=== PATIENT | female | born 2000 | race Caucasian/White ===

== ENCOUNTER 2024-12-02 15:13 | Outpatient (RCR) | payer OTHER, BC, SELFPAY | END 2025-02-28 23:59 | disposition home or self-care (01) | LOC: ANHLAB 15:13 | PROVIDERS: Visit Provider Obstetrics & Gynecology | DX: O20.0 Threatened abortion (principal); Z3A.00 Weeks of gestation of pregnancy not specified | CPT/HCPCS: 36415; 84702 ==

== ENCOUNTER 2025-05-15 14:19 | Observation (INO) | payer OTHER, BC, SELFPAY ==
--- OUTSIDE RECORDS SUMMARY | 2025-05-15 14:38 | XMS_ITS | Encounter Summary ---
Author Organization [facility] Address [address] [place] [address] Care Team Providers Care Plate Cleaner Name Role Phone Unavailable Primary Care Provider Unavailabl e Encounter Details Date Type Department Care Team (Latest Contact Info) Description 04/17/2025 Results Follow-Up [facility] Maternal and Medicine - Medical [place] [address] [place] [address] Tess Vazquez MD [address] [facility] [place] [address] COMPREHENSIVE METABOLIC PANEL, HEMOGLOBIN A1C, BILE ACIDS FRACTIONATED AND TOTAL Social History Tobacco Use Types Packs/Day Years Used Date Smoking Tobacco: Never Estimated Date of Delivery Comme nts Yes 07/13/2025 Date entered bianca or to episode creation Sex and Gender Information Value Date Recorded Sex Assigned at Not on file 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 Gender Identity Not on file Sexual Orientation Not on file documented as of this encounter Plan of Treatment Upcoming Encounters Date Type Department Care Team (Late st Contact Info) Description 05/25/2025 9:00 AM CDT Appointment [facility] Maternal and Ground Floor [address] [place] [address] Marlee Clemens MD [address] [place] [address] 06/01/2025 9:00 AM CDT Appointment [facility] Ground Floor [address] [place] [phone] Marlee Clemens MD [address] [facility] [place] [address] 06/05/2025 8:00 AM CDT Office Visit [facility] [address] [address] Michael Hartman MD [address] [facility] [address] [place] [address] 06/05/2025 9:00 AM CDT Appointment [facility] Ground Floor [address] [place] [phone] Marlee Clemens MD [address] [facility] [place] [address] 06/05/2025 9:45 AM CDT Appointment [facility] Ground Floor [address] [place] [phone] Latonia Collins MD [address] [facility] [address] [place] [address] 06/08/2025 8:45 AM CDT Appointment [facility] Ground Floor [address] [place] [phone] Marlee Clemens MD [address] [facility] [place] [address] 06/08/2025 11:00 AM CDT visit [facility] Maternal and Medicine - [facility] [address] [facility] [address] [place] [address] 06/15/2025 9:00 AM CDT Appointment [facility] M[facility] and Ground Floor [address] [place] [phone] Marlee Clemens MD [address] [facility] [facility] [place] [address] 06/22/2025 9:00 AM CDT Appointment [facility] M[facility] Ground Floor [address] [place] [address] Latonia Collins MD [address] [facility] [address] [place] [address] 06/29/2025 9:00 AM CDT Appointment [facility] and Ground Floor [address] [place] [address] Latonia Collins MD [address] [facility] [address] [place] [address] 07/06/2025 9:00 AM CDT Appointment [facility] M[facility] and Ground Floor [address] [place] [address] Latonia Collins MD [address] [facility] [address] [place] [address] documented as of this encounter Visit Diagnoses Not on filedocumented in this encounter
--- OUTSIDE RECORDS SUMMARY | 2025-05-15 14:39 | XMS_ITS | Referral Summary ---
Author Organization [address] Address [address] [facility] [address] [place] [address] Care Team Providers Care Zipper Slide Attacher Name Role Phone Shila Patel SURVEY CREW CHIEF Primary Care Provider [phone] Encounters Date Type Department Care Team Description 03/29/2025 4:00 PM CDT Office Visit [facility] Primary Care at [address] [address] Shila Patel NP Encounter to establish care with new provider (Primary Dx); Type 1 diabetes mellitus without complication (HCC) from Last 3 Months Allergies No known active allergies Medications Dexcom G7 Sensor device 4 Active insulin glargine 100 unit/mL (3 mL) pen for injection Inject 4 Units under the skin daily 3 mL 6 5 Active insulin aspart (NovoLOG) 100 unit/mL vial for injection Total daily dose of 20 units 3 mL 6 5 Active insulin lispro (HumaLOG, ADMELOG) 100 unit/mL pen for injectionIndicat ions:type 1 diabetes mellitus Total daily dose of 20 units 3 mL 6 5 Active insulin lispro-aabc (LYUMJEV) 100 unit/mL vial for injection Inject 20 Units under the skin daily 10 mL 11 5 Active insulin aspart niacinamide (FIASP) 100 unit/mL (3 mL) pen for injection Inject Total daily dose of 20 units 10 mL 11 5 Active fluticasone furoate-vilanter oL 50-25 mcg/dose blister with device Inhale daily Activ e cetirizine (ZyrTEC) 10 mg tablet Take 1 tablet (10 mg total) by mouth daily Active aspirin 81 mg enteric coated tablet Take 1 tablet (81 mg total) by mouth daily Active vit 82-zmxl-vnwys-dh a 27mg iron- 800 mcg-250 mg capsule Take by mouth Active magnesium gluconate 200 mg tabletIndication s:hypomagnesemia 1 tablet (200 mg total) Active fluticasone propionate (FLONASE) 50 mcg/actuation nasal spray Administer 1 spray into each nostril daily Active ipratropium-albu teroL (Combivent Respimat) 20-100 mcg/actuation inhaler Inhale 1 puff every 4 (four) hours as needed for shortness of breath 1 each Active albuterol HFA (PROVENTIL HFA,VENTOLIN HFA,PROAIR HFA) 90 mcg/actuation inhaler Inhale 2 puffs every 6 (six) hours as needed for wheezing 1 each Active Active Problems Problem Noted Date Diagnosed Date Encounter to establish care with new provider Type 1 diabetes mellitus without complication Pre-existing type 1 diabetes mellitus in in second trimester 01/18/2025 Asthma during in second trimester 03/2025 Social History Tobacco Use Types Packs/Day Years Used Date Smoking Tobacco: Never Smokeless Tobacco: Never Tobacco Cessation:Counseling Given: Not Answered AUDIT-C Answer Date Recorded Q1: How often do you have a drink containing alcohol? Never 03/29/2025 Q2: How many drinks containi ng alcohol do you have on a typical day when you are drinking? Patient does not drink Q3: How often do you have si x or more drinks on one occasion? 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 Gender Identity Not on file Sexual Orientation Not on file Last Filed Vital Signs Vital Sign Reading Time Taken Comments Blood Pressure 120/64 03/29/2025 3:57 PM CDT Pulse 93 03/29/2025 3:57 PM CDT Temperature 36.9 C (98.4 F) 03/29/2025 3:57 PM CDT Respiratory Rate 16 03/29/2025 3:57 PM CDT Oxygen Saturation 94% 03/29/2025 3:57 PM CDT Inhaled Oxygen Concentration - - Weight 67.4 kg (148 lb 11.2 oz) 03/29/2025 3:57 PM CDT Height 157.5 cm (5' 2) 03/29/2025 3:57 PM CDT Body Mass Index 27.2 03/29/2025 3:57 PM CDT Plan of Treatment Not on file Procedures Procedure Name Priority Date/Time Associated Diagnosis Comments RETINAVUE SCANNER - OU - BOTH EYES Routine 11/17/2024 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), managed as type 1 (HCC) from Last 3 Months or Most Recently Relevant to Health Maintenance Results * RetinaVue Scanner - OU - Both Eyes (11/17/2024) Anatomical Region Laterality Modality Head Fundus Photograp hy 11/17/2024 Jaron Gonzalez DO OPHTH PHOTOGRAPHY Final Res ult from Last 3 Months or Most Recently Relevant to Health Maintenance Insurance [facility] H[facility]/PPO Address: [facility] [address] [place] [address] [facility] Care Teams Zipper Slide Attacher Relationship Specialty Start Date End Date Shila Patel NP [address] [address] PCP - General Family Medicine 03/29/25
--- OUTSIDE RECORDS SUMMARY | 2025-05-15 14:39 | XMS_ITS | Data Portability ---
Author Organization [facility], [address] [place] ([place]) Address [address] [address] Care Team Providers Care Ream Cutter Name Role Phone RAGHAV BUSTAMANTE Primary Care Provider BETY CABA Tax Advisor Assessment No assessment recorded. Plan of Treatment Reminders Order Date Submit Date Provider Last Modified By Organization Details Last Modified Time Details Appointments None recorded. Lab Pap test, slide(s), cervical - 2023 024 JUL[facility], [facility] [address], [address], 10:13:22 Referral None recorded. Procedures None recorded. Surgeries None recorded. Imaging None recorded. Medication Orders None recorded. Patient TargetsNo targets recorded. Patient Instructions Encounter Date Encounter Id Patient Instructions Last Modified By Organization Details Last Modified Time 04/22/2024 [id number] Await pap result s Discussed how kyleena has only been approved for 5 years, discussed increased risk of , vu. annual in a year [email or web address] Not available 04/22/2024 11:02:48 Reason for Referral None Reported. Results Created Date Observation Date Name Description Value Unit Range Abnormal Flag Note LastModifiedBy Organization Detail LastModifiedTime Result Notes None recorded. Problems Name Problem SNOMED Code Status Onset Date Resolution Date Notes Provider Name and Address Organization Details Recorded Time Uses IUD (intraut erine device) contrace ption 613784095 Completed 202310/12/2024 Kyleena inserted 03/11/[address] Cabrera, Lot [id number] [facility] 4 10:56:23 Type 1 diabetes mellitus 76299117 Active 2023 Taylerjacinto Warren [facility] 4 08:38:12 Migraine 46998470 Active 2023 Tayler Warren [facility] 4 08:38:19 Asthma 846609960 Active 2023 Tayler Warren [facility] 4 08:38:25 Problem Notes None recorded. Procedures Surgical History Date Name Laterality Status Provider Name and Address Organization Details Recorded Time 4 IUD Removal completed China Garces, ANODIC OPERATOR [address], [address], [facility] 10/12/2024 11:14:20 4 Date of Last Pap Smear completed [facility] 04/24/2025 14:14:21 extraction of wisdom tooth completed [facility] 04/24/2025 14:15:15 operative procedure on knee completed [facility] 04/24/2025 14:15:24 removal of ovarian cyst completed [facility] 04/24/2025 14:15:39 Imaging Results None recorded. Procedure Notes None recorded. Medical Equipment None Reported. Allergies Allergen ID Allergen Name Allergen Category Reaction Reaction Severity Criticality Documentation Date Start Date Code Code System Note Provider Name and Address Organization Details Recorded Time 6476547 ethinyl estradiol / levonorge strel medicatio n chest pain cough eye redness eye swelling headache hives itching rash wheezing Not available Not available Not available Not available Not available Not available Not available Not available Not available Not available 04/15/2024 21445 8 RxNorm Not Available Health Note 4 10:01:01 Medications Name Sig Start Date Stop Date Status Note LastModified by Organization Details LastModified Time cyclobenzapr ine 10 mg tablet TAKE 1 TABLET ORAL ROUTE EVERY 8 HOURS NEEDED CUT IN HALF IF TOO SEDATING active Not Available Not Available No t Available clindamycin 1 % topical gel APPLY 1 A SMALL AMOUNT TO SKIN TWICE A DAY FACE active Not Available Not Available N ot Available ibuprofen 600 mg tablet TAKE 1 TABLET ORAL ROUTE EVERY 6 HOURS NEEDED TAKE WITH FOOD active Not Available Not Available No t Available albuterol sulfate HFA 90 mcg/actuatio n aerosol inhaler TAKE 2 PUFFS BY INHALATION EVERY 4 HOURS NEEDED FOR WHEEZING OR COUGH. USE WITH SPACER active Not Available Not Available Not Available Novolog PenFill U-100 Insulin aspart 100 unit/mL subcutaneous cartridg USE DIRECTED. GIVE UP TO 60 UNITS PER DAY. active Not Available Not Available No t Available olopatadine 0.6 % nasal spray 1 BY NASAL ROUTE 2 TIMES DAILY. active Not Available Not Available No t Available Kyleena 17.5 mcg/24 hr (up to 5 years) 19.5 mg intrauterine device Take 1 device every day by intrauterin e route. active Not Available Not Available No t Available Gvoke HypoPen 2-Pack 1 mg/0.2 mL subcutaneous auto-injecto r USE FOR SEVERE LOW BLOOD SUGAR. INJECT IF UNCONSCIOUS OR HAVING A SEIZURE active Not Available Not Available No t Available Dexcom G7 Sensor device CHANGE SENSOR EVERY 10 DAYS active Not Available Not Available No t Available Vitals Date Recorded Body height Body mass index (BMI) Body weight Systolic blood pressure Diastolic blood pressure Provider Name and Address Organization Details Last Updated DateTime 04/22/2024 162.56 cm 19.7 kg/m2 48665.12 g 92 mm[Hg] 62 mm[Hg] Cathie Oakley [facility] 4 09:15:45 Date Recorded Body height Body mass index (BMI) Body weight Systolic blood pressure Diastolic blood pressure Provider Name and Address Organization Details Last Updated DateTime 10/12/2024 162.56 cm 22.2 kg/m2 40427.57 g 104 mm[Hg] 58 mm[Hg] Nara Anthony [facility] 4 11:02:22 Social History Question Answer Notes LastModified by Organizat ion Details LastModified Time Tobacco Smoking Status Never [facility]/05/2024 16:38:14 Do You Have An Advance Directive? No [email or web address] Information not available 04/15/2024 What Is Your Level Of Caffeine Consumption? Occasional [email or web address] Information not available 04/15/2024 How Many Times Per Week Do You Exercise? 3-4 Times Per Week [email or web address] Information not available 04/15/2024 Do You Have A Medical Power Of Internet Project Manager? No [email or web address] Information not available 04/15/2024 What Was The Date Of Your Most Recent Tobacco Screening? 04/22/2024 [email or web address] Information not available 04/15/2024 What Is Your Relationship Status? Single [email or web address] Information not available 04/22/2024 Are You Sexually Active? No [email or web address] Information not available 04/22/2024 Sex: Unknown Functional Status Question Answer Note LastModified by Organizat ion Details LastModified Time How many times per week do you consume alcohol? Less than 1 time per week [email or web address] Information not available 04/15/2024 Do you use any illicit or recreational drugs? No [email or web address] Information not available 04/15/2024 What is your level of alcohol consumption? Occasional [email or web address] Information not available 04/15/2024 Are you currently employed? 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 Moderate [email or web address] Information not available 04/15/2024 Mental Status None recorded. Family History Relationship Description Onset Age of this Age Resolved Age Notes LastModified by Organization Details LastModified Time Brother Attention deficit hyperactivit y disorder [email or web address] Not available 04/15 10:01:00 Mother Arthritis [email or web address] Not available 04/15/2024 10:01:00 Maternal Grandfather Arthritis [email or web address] Not available 03/18 10:01:00 Maternal Grandfather Asthma [email or web address] Not available 2023 10:01:00 Maternal Grandmother Arthritis [email or web address] Not available 03/18 10:01:00 Maternal Grandmother Hypertensive disorder [email or web address] Not available 2023 10:01:00 Father Diabetes mellitus [email or web address] Not available 2023 10:01:00 Paternal Grandfather Diabetes mellitus [email or web address] Not available 2023 10:01:00 Paternal Grandfather Hypertensive disorder [email or web address] Not available 2023 10:01:00 Paternal Grandfather Hypercholest erolemia [email or web address] Not available 2023 10:01:00 Paternal Grandmother Hypertensive disorder [email or web address] Not available 2023 10:01:00 Paternal Grandmother Hypercholest erolemia [email or web address] Not available 2023 10:01:00 Medical History Condition Response Diabetes Y Anxiety Disorder Y Bleeding Disorder N Attention-deficit Hyperactivity Disorder Y High Blood Pressure N Arthritis N Hyperlipidemia N Cancer N Stroke N Thyroid Problems N Asthma Y Depression N COPD N Anemia N Seizures N Heart Disease N Fibromyalgia N Osteoporosis N Kidney Disease N Gynecological History Statement/Question Response Abnormal Pap N Flow Moderate STIs/STDs N HPV Vaccine N Date of Last Pap Smear 04/25/2024 Duration of Flow (days) 6 Age at Menarche 13 Current Control Method IUD Hormone Replacement Therapy N Obstetrics History GPAL:G 0 P 0 0 0 0 Immunizations Vaccine Type Date Status Note Provider Nam e and Address Organization Details Recorded Time COVID-19, mRNA, LNP-S, PF, 30 mcg/0.3 mL dose 1 completed Laurie Madeleine [facility] 10/05/2024 16:37:15 COVID-19, mRNA, LNP-S, PF, 30 mcg/0.3 mL dose 1 completed Laurie Madeleine [facility] 10/05/2024 16:37:15 COVID-19, mRNA, LNP-S, PF, 30 mcg/0.3 mL dose 1 completed Laurie Madeleine [facility] 10/05/2024 16:37:15 Influenza, split virus, trivalent, PF 5 completed Laurie Madeleine [facility] 10/05/2024 16:37:15 Hep B, adult 2 completed Laurie Madeliene [facility] 10/05/2024 16:37:15 Hep B, adult 1 completed Laurie Crewsue [facility] 10/05/2024 16:37:15 Hep B, adult 1 completed Laurie Crewsue null, [facility] 10/05/2024 16:37:15 Hep A, ped/adol, 2 dose 9 completed Laurie Madeleine null, [facility] 10/05/2024 16:37:15 Hep A, ped/adol, 2 dose 8 completed Laurie Madeleine null, [facility] 10/05/2024 16:37:15 Meningococcal MCV4O 8 completed Laurie Madeleine null, [facility] 10/05/2024 16:37:15 Influenza, split virus, quadrivalent, PF 9 completed Laurie Madeleine null, [facility] 10/05/2024 16:37:15 Influenza, split virus, quadrivalent, PF 6 completed Laurie Madeleine [facility], [facility] 10/05/2024 16:37:15 Past Encounters Encounter ID Performer Location Encounter Start Date Encounter Closed Date Diagnosis/Indication Diagnosis SNOMED-CT Code Diagnosis ICD10 Code Diagnosis Note [id number] ZACHARY Hammer [facility] ([place]) [address] [address] 04/22/2024 09:02:22 04/22/2024 09:41:27 Contraception care management 462653298 Z30.9 Screening for malignant neoplasm of cervix done 1613489047 Z12.4 Gynecologi c examination 98995597 Z01.419 [id number] ROCIO Hawk [facility] ([place]) [address] [address] 10/12/2024 10:48:48 10/12/2024 11:13:22 Removal of intrauterine contraceptive device 6146814661 Z30.432 Patient tolerated removal well, showed patient her IUD after removalEnc ourage patient to reach out should she have any issues or when she becomes Ot herwise, annual next year Health Concerns Section Related Observation LastModified by Organization Detai ls LastModified Time None Recorded Concern Status LastModified by Organization Details LastModified Time None Recorded Advance Directives Directive N: Payers Insurance Date Sequence Insurance Name Policy Number Policy Castillo Covered Member ID Castillo Member ID Guarantor Name 04/23/2025 1 [facility] [id number] Kera Carreon [id number] Kera Copeland 04/23/2025 2 [facility] [facility] [id number] yusra Copeland [id number] Kera Copeland Notes Date Note Type Note Provider Name and Address Organization Details Recorded Time 04/22/2024 text/html Pt getting marri ed next month.Pt would not like to get it out right now, but would be agreeable in October, will be trying to have helpPeriods usually every month, not every month. 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 Bety Caba APN [address] [place] [address], [phone], [facility] 04/22/2024 11:03:22 10/12/2024 text/html Patient presents to the office today to have her IUD removed She was overdue for removal She got over the summer and would like to try to conceiveWe reviewed anticipated bleeding after removal Encourage patient to begin taking a vitamin to prevent neural tube defects DHA and folic acid were encouraged Notified patient that return to fertility is immediate, however cycles may be unpredictable for the first month China Garces APRN [address] [place] [address], [phone], [facility] 10/12/2024 11:17:15 OBGyn Episode No OBEpisode recorded.
--- OUTSIDE RECORDS SUMMARY | 2025-05-15 14:39 | XMS_ITS | Data Portability ---
Author Organization [facility] [place] Address [address] [place] [address] Assessment Encounter Date Assessment Date Assessment LastModified by Organization Details LastModified Time 03/01/2025 03/01/2025 Patient is ___weeks . Discussed plan. Not available 03/01/2025 09:55:15 04/01/2025 04/01/2025 Patient is ___weeks . Discussed plan. [email or web address] Not available 04/01/2025 09:25:14 Plan of Treatment Reminders Order Date Submit Date Provider Last Modified By Organization Details Last Modified Time Details Appointments NST 2024 02:30P M NST SCHEDULE Not available Not available Not available OB ROUTINE 2024 03:15P Rossy YOON MD Not available Not available Not available NST 2024 03:00P M NST SCHEDULE Not available Not available Not available OB ROUTINE 2024 03:45P Rossy YOON MD Not available Not available Not available NST 2024 03:30P M NST SCHEDULE Not available Not available Not available OB ROUTINE 2024 04:00P Rossy YOON MD Not available Not available Not available NST 2024 03:30P M NST SCHEDULE Not available Not available Not available OB ROUTINE 2024 04:00P Rossy YOON MD Not available Not available Not available NST 2024 03:30P M NST SCHEDULE Not available Not available Not available OB ROUTINE 2024 04:00P Rossy YOON MD Not available Not available Not available NST 2024 04:00P M NST SCHEDULE Not available Not available Not available OB ROUTINE 2024 04:30P M DONALD YOON MD Not available Not available Not available NST 2024 03:30P M NST SCHEDULE Not available Not available Not available OB ROUTINE 2024 04:00P M DONALD YOON MD Not available Not available Not available NST 2024 03:30P M NST SCHEDULE Not available Not available Not available OB ROUTINE 2024 04:00P M DONALD YOON MD Not available Not available Not available Lab None recorded. Referral None recorded. Procedures None recorded. Surgeries None recorded. Imaging US, obstetric , follow-up 2024 025 [email or web address] [place], [facility] [address], [place], [address], 03/27/2025 18:47:03 Medication Orders famotidin e 20 mg tablet 2024 025 [facility]/Pharmacy #[id number], [address] [place], [address], 05/01/2025 15:16:08 Patient TargetsNo targets recorded. Patient InstructionsNo instructions recorded. Reason for Referral None Reported. Results Created Date Observation Date Name Description Value Unit Range Abnormal Flag Note LastModifiedBy Organization Detail LastModifiedTime 03/01/2003/01/2025 CMP/C BC/UR IC ACID WBC 8.2 10'3/ uL 3.5-10 .5 Not Available [facility] (Lab) [address], [place], [address], 03/02/2025 02:54:53 03/01/20 25 03/01/2025 CMP/C BC/UR IC ACID RBC 4.14 10'6/ uL (based on docume nted legal sex) 3.80-5 .20 Not Available [facility] (Lab) [address], [place], [address], 03/02/2025 02:54:53 03/01/20 25 03/01/2025 CMP/C BC/UR IC ACID HGB 12.8 g/dL (based on docume nted legal sex) 11.6-1 5.4 Not Available [facility] (Lab) [address], [place], [address], 03/02/2025 02:54:53 03/01/20 25 03/01/2025 CMP/C BC/UR IC ACID HCT 37.9 % (based on docume nted legal sex) 34.0-4 5.0 Not Available [facility] (Lab) [address], [place], [address], 03/02/2025 02:54:53 03/01/20 25 03/01/2025 CMP/C BC/UR IC ACID MCV 91.5 fL 80.0-9 9.0 Not Available [facility] (Lab) [address], [place], [address], 03/02/2025 02:54:53 03/01/20 25 03/01/2025 CMP/C BC/UR IC ACID MCH 30.9 pg 27.0-3 4.0 Not Available [facility] (Lab) [address], [place], [address], 03/02/2025 02:54:53 03/01/20 25 03/01/2025 CMP/C BC/UR IC ACID MCHC 33.8 g/dL 32.0-3 5.5 Not Available [facility] (Lab) [address], [place], [address], 03/02/2025 02:54:53 03/01/20 25 03/01/2025 CMP/C BC/UR IC ACID RDW 13.3 % 11.0-1 5.0 Not Available [facility] (Lab) [address], [place], [address], 03/02/2025 02:54:53 03/01/20 25 03/01/2025 CMP/C BC/UR IC ACID plt 176 10'3/ uL 150-40 0 Not Available [facility] (Lab) [address], [place], [address], 03/02/2025 02:54:53 03/01/20 25 03/01/2025 CMP/C BC/UR IC ACID MPV 11.0 fL 8.8-12 .1 Not Available [facility] (Lab) [address], [place], [address], 03/02/2025 02:54:53 03/01/20 25 03/01/2025 CMP/C BC/UR IC ACID neutrophils 70.2 % 34.0-7 3.0 Not Available [facility] (Lab) [address], [place], [address], 03/02/2025 02:54:53 03/01/20 25 03/01/2025 CMP/C BC/UR IC ACID lymphocytes 17.6 % 15.0-5 0.0 Not Available [facility] (Lab) [address], [place], [address], 03/02/2025 02:54:53 03/01/20 25 03/01/2025 CMP/C BC/UR IC ACID monocytes 9.6 % 1.0-15 .0 Not Available [facility] (Lab) [address] [place], [address], 03/02/2025 02:54:53 03/01/20 25 03/01/2025 CMP/C BC/UR IC ACID eosinophils 1.3 % 0.0-8. 0 Not Available [facility] (Lab) [address] [place], [address], 03/02/2025 02:54:53 03/01/20 25 03/01/2025 CMP/C BC/UR IC ACID basophils 0.2 % 0.0-2. 0 Not Available [facility] (Lab) [address] [place], [address], 03/02/2025 02:54:53 03/01/20 25 03/01/2025 CMP/C BC/UR IC ACID immature granulocytes 1.1 % no define d refere nce range Immat ure Granu locyt es (IG) repre sents autom ated enume ratio n of Metam yeloc ytes, Myelo cytes and Promy elocy james when IG is < 5%. Blast s are not inclu ded in IG and repor loretta separ ately if prese nt. Not Available [facility] (Lab) [address], [place], [address], 03/02/2025 02:54:53 03/01/20 25 03/01/2025 CMP/C BC/UR IC ACID absolute neutrophils 5.7 10'3/ uL 1.5-8. 0 Not Available [facility] (Lab) [address], [place], [address], 03/02/2025 02:54:53 03/01/20 25 03/01/2025 CMP/C BC/UR IC ACID absolute lymphocytes 1.4 10'3/ uL 1.0-4. 0 Not Available [facility] (Lab) [address], [place], [address], 03/02/2025 02:54:53 03/01/20 25 03/01/2025 CMP/C BC/UR IC ACID absolute monocytes 0.8 10'3/ uL 0.2-1. 0 Not Available [facility] (Lab) [address] [place], [address], 03/02/2025 02:54:53 03/01/20 25 03/01/2025 CMP/C BC/UR IC ACID absolute eosinophils 0.1 10'3/ uL 0.0-0. 6 Not Available [facility] (Lab) [address] [place], [address], 03/02/2025 02:54:53 03/01/20 25 03/01/2025 CMP/C BC/UR IC ACID absolute basophils 0.0 10'3/ uL 0.0-0. 3 Not Available [facility] (Lab) [address], [place], [address], 03/02/2025 02:54:53 03/01/2003/01/2025 CMP/C BC/UR IC ACID absolute immature granulocytes 0.1 10'3/ uL 0.00-0 .10 Refer ence range s for nonbi nary/ inter sex or unspe cifie d gende r patie nts have not been estab lishe d. Pleas e refer to the mano wing table for range s estab lishe d for cisge nder patie nts and evalu ate in the clini jacey chris xt of the indiv idual patie nt: https ://antione kelly book. nm.or g/gen derx Not Available [facility] (Lab) [address], [place], [address], 03/02/2025 02:54:53 03/01/2003/01/2025 CMP/C BC/UR IC ACID uric acid 3.6 mg/dL 2.3-6. 6 Not Available [facility] (Lab) [address], [place], [address], 03/02/2025 02:54:53 03/01/2003/01/2025 CMP/C BC/UR IC ACID sodium 137 mmol/ L 133-14 6 Not Available [facility] (Lab) [address] [place], [address], 03/02/2025 02:54:53 03/01/2003/01/2025 CMP/C BC/UR IC ACID potassium 3.5 mmol/ L 3.5-5. 1 Not Available [facility] (Lab) [address], [place], [address], 03/02/2025 02:54:53 03/01/2003/01/2025 CMP/C BC/UR IC ACID chloride 105 mmol/ L 98-107 Not Available [facility] (Lab) [address] [place], [address], 03/02/2025 02:54:53 03/01/20 25 03/01/2025 CMP/C BC/UR IC ACID carbon dioxide 27 mmol/ L 21-31 Not Available [facility] (Lab) [address], [place], [address], 03/02/2025 02:54:53 03/01/20 25 03/01/2025 CMP/C BC/UR IC ACID anion gap 5 mmol/ L 4-13 Not Available [facility] (Lab) [address], [place], [address], 03/02/2025 02:54:53 03/01/20 25 03/01/2025 CMP/C BC/UR IC ACID blood urea nitrogen 4 mg/dL 7-25 low Not Available [facility] (Lab) [address], [place], [address], 03/02/2025 02:54:53 03/01/20 25 03/01/2025 CMP/C BC/UR IC ACID creatinine 0.60 mg/dL 0.60-1 .30 Not Available [facility] (Lab) [address], [place], [address], 03/02/2025 02:54:53 03/01/20 25 03/01/2025 CMP/C BC/UR IC ACID egfrcr (CKD-epi 2020) >90 mL/mi n/1.7 3_m2 >=60 Not Available [facility] (Lab) [address], [place], [address], 03/02/2025 02:54:53 03/01/20 25 03/01/2025 CMP/C BC/UR IC ACID calcium 10.2 mg/dL 8.3-10 .5 Not Available [facility] (Lab) [address], [place], [address], 03/02/2025 02:54:53 03/01/20 25 03/01/2025 CMP/C BC/UR IC ACID glucose 56 mg/dL 70-100 low Not Available [facility] (Lab) [address], [place], [address], 03/02/2025 02:54:53 03/01/20 25 03/01/2025 CMP/C BC/UR IC ACID protein, total 6.3 g/dL 6.4-8. 3 low Not Available [facility] (Lab) [address], [place], [address], 03/02/2025 02:54:53 03/01/20 25 03/01/2025 CMP/C BC/UR IC ACID albumin 3.6 g/dL 3.5-5. 0 Not Available [facility] (Lab) [address], [place], [address], 03/02/2025 02:54:53 03/01/20 25 03/01/2025 CMP/C BC/UR IC ACID ALT 11 units /L 9-43 Not Available [facility] (Lab) [address], [place], [address], 03/02/2025 02:54:53 03/01/20 25 03/01/2025 CMP/C BC/UR IC ACID alkaline phosphatase 55 units /L 34-104 Not Available [facility] (Lab) [address], [place], [address], 03/02/2025 02:54:53 03/01/2003/01/2025 CMP/C BC/UR IC ACID AST 15 units /L 13-39 Not Available [facility] (Lab) [address], [place], [address], 03/02/2025 02:54:53 03/01/2003/01/2025 CMP/C BC/UR IC ACID bilirubin, total 0.4 mg/dL 0.2-1. 2 Not Available [facility] (Lab) [address] [place], [address], 03/02/2025 02:54:53 03/01/20 25 03/01/2025 PROTE IN/CR EATIN INE RATIO , URINE creatinine, urine 105.5 mg/dL R-No refer ence range estab lishe d for this assay Not Available [facility] (Lab) [address], [place], [address], 03/02/2025 02:54:53 03/01/20 25 03/01/2025 PROTE IN/CR EATIN INE RATIO , URINE protein, urine 7 mg/dL R-No refer ence range estab lishe d for this assay Not Available [facility] (Lab) [address], [place], [address], 03/02/2025 02:54:53 03/01/20 25 03/01/2025 PROTE IN/CR EATIN INE RATIO , URINE protein/crea tinine ratio, urine 0.07 . No Refer ence Range avail able for Rando m Urine s. A prote in to creat inine ratio of >=0.1 9 is a good predi ctor of signi fican t prote inuri a. A level of <0.14 can rule out signi fican t prote inuri a. Not Available [facility] (Lab) [address], [place], [address], 03/02/2025 02:54:53 04/17/20 25 04/17/2025 HEMOG LOBIN (HGB) HGB 11.6 g/dL (based on docume nted legal sex) 11.6-1 5.4 Not Available [facility] (Lab) [address], [place], [address], 04/18/2025 15:22:30 04/17/20 25 04/17/2025 HEMAT OCRIT (HCT) HCT 36.9 % (based on docume nted legal sex) 34.0-4 5.0 Not Available [facility] (Lab) [address], [place], [address], 04/18/2025 15:22:30 04/17/20 25 04/17/2025 HIV 1/2 ANTIG EN/AN TIBOD Y, REFLE X CONFI RMATI ON HIV antigen/anti body Nonrea ctive nonrea ctive HIV-1 antig en and HIV-1 /HIV- 2 antib odies were not detec loretta. No labor atory evide nce of HIV infec tion. Not Available [facility] (Lab) [address], [place], [address], 04/18/2025 15:22:31 04/17/20 25 04/17/2025 RPR SCREE N, REFLE X TITER /CONF IRMAT ION RPR qualitative Nonrea ctive nonrea ctive Not Available [facility] (Lab) [address], [place], [address], 04/18/2025 15:22:31 02/28/20 25 02/27/2025 US, obste tric, follo w-up No observ ation record ed. [email or web address] [facility] [place] [address] , [place], [address], 03/24/2025 15:19:33 02/28/20 25 02/27/2025 US, obste tric, follo w-up No observ ation record ed. [email or web address] [facility] [address], [place], [address], 03/08/2025 11:01:21 03/27/20 25 03/27/2025 US, obste tric, follo w-up No observ ation record ed. [email or web address] [place] [address], [place], [address], 03/27/2025 18:19:41 03/27/20 25 03/27/2025 US, obste tric, follo w-up No observ ation record ed. JULIA Oseguera [address], [place], [address], 04/04/2025 18:53:56 04/12/20 04/12/2025 imagi ng/di agnos tic resul t No observ ation record ed. [facility] [address], [place], [address], 05/04/2025 11:15:11 05/08/20 25 05/08/2025 imagi ng/di agnos tic resul t No observ ation record ed. [facility] [address] [facility], [place], [address], 05/08/2025 19:10:46 05/08/20 25 05/08/2025 imagi ng/di agnos tic resul t No observ ation record ed. [place] [id number] [facility], [place], [address], 05/08/2025 19:10:47 Result Notes None recorded. Problems Name Problem SNOMED Code Status Onset Date Resolution Date Notes Provider Name and Address Organization Details Recorded Time 25472520 Active 2024 Rosa beard, [facility] 5 14:39:51 Type 1 diabetes mellitus 28293986 Active A1c 4.8%; Current regimen: ICR 1:16, back on insulin pump MFM is managing sugars 2wkly testing with BPP starting at 32wks DONALD YOON MD [address], [place], [address], [facility] 5 15:14:52 Type 1 diabetes mellitus 52343617 Active A1c 4.8%; Current regimen: ICR 1:16, back on insulin pump MFM is managing sugars 2wkly testing with BPP starting at 32wks DONALD YOON MD [address], [place], [address], [facility] 5 15:14:52 Severe asthma 525275078 Active on combivent , breo, and albuterol (has not needed in 2 months) DONALD YOON MD [address], [place], [address], [facility] 5 00:57:55 Fracture of coccyx 570228279 Active three attempted epidurals for pain control in that all failed; consider anesthesi a consult DONALD YOON MD [address], [place], [address], [facility] 5 00:58:36 Fracture of coccyx 646496019 Active three attempted epidurals for pain control in that all failed; consider anesthesi a consult DONALD YOON MD [address], [place], [address], [facility] 5 00:58:36 Severe asthma 422627732 Active on combivent , breo, and albuterol (has not needed in 2 months) DONALD YOON MD [address], [place], [address], [facility] 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 5 17:41:24 Carrier of cystic fibrosis gene mutation 308192724 Active 2024 Stacie Lyon null, [facility] 17:41:24 Headache 65352401 Active Diego Mclaughlin MD [address], [place], [address], [facility] 5 10:13:34 Problem Notes None recorded. Procedures Surgical History Date Name Laterality Status Provider Name and Address Organization Details Recorded Time 4 Date of Last Pap Smear completed Rosa Rodriguez [facility] 12/06/2024 17:11:59 8 extraction of wisdom tooth completed Rosa Rodriguez [facility] 12/06/2024 17:34:32 5 Orthopedic Surgery completed [facility] 04/01/2025 09:29:27 1 procedure on back completed [facility] 04/01/2025 09:30:14 9 operative procedure on hand completed [facility] 04/01/2025 09:31:00 7 excision of cyst completed [facility] 04/01/2025 09:30:34 Imaging Results None recorded. Procedure Notes None recorded. Medical Equipment None Reported. Allergies Allergen ID Allergen Name Allergen Category Reaction Reaction Severity Criticality Documentation Date Start Date Code Code System Note Provider Name and Address Organization Details Recorded Time 81427 Pollen-Lopez yfever medicatio n cough moderate Not available 12/06/2024 31786 Ken beard [facility] 17:11:33 Medications Name Sig Start Date Stop Date Status Note LastModified by Organization Details LastModified Time Minimed Insulin Infusion Pump active Not Available Not Available Not Available Proventil 2.5 mg/3 mL (0.083 %) solution for nebulizatio n active Not Available Not Available Not Available famotidine 20 mg tablet TAKE 1 TABLET BY MOUTH TWICE A DAY active Not Available Not Available No t Available ferrous sulfate 325 mg (65 mg iron) tablet TAKE 1 TABLET BY MOUTH EVERY DAY active Not Available Not Available No t Available albuterol sulfate HFA 90 mcg/actuati on aerosol inhaler INHALE 2 PUFFS EVERY 6 HOURS NEEDED FOR WHEEZING active Not Available Not Available No t Available Nav Aerosol [place] Enhancer spacer 02/01 completed Not Available Not Available Not Available Blood Glucose Monitoring kit 02/01 completed Not Available Not Available Not Available insulin aspart (U-100) 100 unit/mL (3 mL) subcutaneou s pen active Not Available Not Available Not Available magnesium active Not Available Not Sharri ilable Not Available olopatadine active Not Available Not A vailable Not Available albuterol 04/17 completed Not Available Not Available Not Available Flonase active Not Available Not Avail able Not Available naproxen 04/01 completed Not Available Not Available Not Available Norflex 04/01 completed Not Available Not Available Not Available peak flow meter active Not Available Not Available Not Available Erica active Not Available Not Avail able Not Available Combivent 04/01 completed Not Available Not Available Not Available Novolog U-100 Insulin aspart active Not Available Not Available Not Available + DHA active Not Available Not Available Not Available Combivent Respimat 20 mcg-100 mcg/actuati on solution for inhalation active Not Available Not Available N ot Available Breo Ellipta active Not Available Not Available Not Available subcutaneou s insulin pump and continuous glucose monitoring system active Not Available Not Available Not Available Basaglar KwikPen U-100 Insulin 100 unit/mL (3 mL) subcutaneou s active Not Available Not Available Not Available Basaglar KwikPen U-100 Insulin 03/01 completed Not Available Not Available Not Available Fiasp FlexTouch U-100 Insulin 100 unit/mL (3 mL) subcutaneou s pen INJECT TOTAL DAILY DOSE OF 20 UNITS (150 DAY SUPPLY) active Not Available Not Available No t Available Gvoke HypoPen active Not Available Not Available Not Available insulin glargine-yf gn (U-100) 100 unit/mL (3 mL) subcutaneou s pen active Not Available Not Available Not Available Dexcom G7 Sensor device CHANGE SENSOR EVERY 10 DAYS active Not Available Not Available No t Available Vitals Date Recorded Body weight Systolic blood pressure Diastolic blood pressure Provider Name and Address Organization Details Last Updated DateTime 03/01/2025 10581.9318 g 109 mm[Hg] 68 mm[Hg] Radha Munguia [facility] 03/01/2025 09:56:59 Date Recorded Body height Body mass index (BMI) Body weight Systolic blood pressure Diastolic blood pressure Provider Name and Address Organization Details Last Updated DateTime 04/01/2025 157.48 cm 27.3 kg/m2 55153.26 g 114 mm[Hg] 75 mm[Hg] Stacie Lyon [facility] 09:26:07 Date Recorded Body weight Body mass index (BMI) Body height Systolic blood pressure Diastolic blood pressure Provider Name and Address Organization Details Last Updated DateTime 04/17/2025 30465.22 498 g 28.2 kg/m2 157.48 cm 123 mm[Hg] 73 mm[Hg] Radha Munguia [facility] 14:25:39 Date Recorded Body height Body mass index (BMI) Body weight Systolic blood pressure Diastolic blood pressure Provider Name and Address Organization Details Last Updated DateTime 05/01/2025 157.48 cm 29.2 kg/m2 24038.34 g 135 mm[Hg] 81 mm[Hg] IBAN Chu [facility] 14:57:15 Social History Question Answer Notes LastModified by Organizat ion Details LastModified Time Tobacco Smoking Status Never Smoker Rosa beard, [facility] 12/06/2024 17:33:33 Do You Have An Advance Directive? No Information n ot available 12/06/2024 If You Are , What Was Your Level Of Alcohol Consumption Prior To ? Occasional [email or web address] Information not available 04/01/2025 Are You Blind Or Do You Have Difficulty Seeing? No Information n ot available 12/06/2024 What Is Your Level Of Caffeine Consumption? Occasional [email or web address] Information not available 12/06/2024 How Much Tobacco Do You Chew? None [email or web address] Information not available 12/06/2024 In The 14 Days Before Symptom Onset, Have You Had Close Contact With A Laboratory-confirm ed COVID-19 While That Case Was Ill? No [email or web address] Information n ot available 12/06/2024 In The 14 Days Before Symptom Onset, Have You Had Close Contact With A Person Who Is Under Investigation For COVID-19 While That Person Was Ill? No [email or web address] Information not available 12/06/2024 Have You Been To An Area Known To Be High Risk For COVID-19? No [email or web address] Information not available 12/06/2024 Are You Deaf Or Do You Have Serious Difficulty Hearing? No [email or web address] Information not available 12/06/2024 What Type Of Diet Are You Following? REGULAR [email or web address] Information n ot available 12/06/2024 What Is The Highest Grade Or Level Of School You Have Completed Or The Highest Degree You Have Received? [id number] [email or web address] Information not available 12/06/2024 Are There Any Guns Present In Your Home? No [email or web address] Information not available 12/06/2024 Do You Use Protection During Sex? No [email or web address] Information not available 12/06/2024 Do You Use Your Seat Belt Or Car Seat Routinely? Yes [email or web address] Information not available 12/06/2024 Are You Sexually Active? Yes [email or web address] Information not available 12/06/2024 Do You Have Smoke And Carbon Monoxide Detectors In Your Home? Yes [email or web address] Information not available 12/06/2024 How Much Tobacco Do You Smoke? No [email or web address] Information not available 12/06/2024 Do You Use Sunscreen Routinely? No [email or web address] Information not available 12/06/2024 Have You Used IV Drugs? No [email or web address] Information not available 12/06/2024 Do You Have Difficulty Walking Or Climbing Stairs? No [email or web address] Information not available 12/06/2024 Sex: Unknown Functional Status Question Answer Note LastModified by Organizat ion Details LastModified Time Do you use any illicit or recreational drugs? No [email or web address] Information not available 12/06/2024 What is your level of alcohol consumption? None [email or web address] Information not available 12/06/2024 Are you currently employed? Yes [email or web address] Information not available 12/06/2024 Are you able to walk? YESWOREST [email or web address] Information not available 12/06/2024 Are you able to care for yourself? 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 No [email or web address] Information not available 12/06/2024 What is your exercise level? Moderate [email or web address] Information not available 12/06/2024 Mental Status Question Answer Note LastModified by Organization D etails LastModified Time Do you feel stressed (tense, restless, nervous, or anxious, or unable to sleep at night)? [id number] Information not available 02/01/2025 Family History Relationship Description Onset Age of this Age Resolved Age Notes LastModified by Organization Details LastModified Time Paternal Uncle Multiple sclerosis Not available 01/14 16:32:46 Paternal Uncle Hypercholest erolemia Not available 01/14 16:32:46 Brother Anxiety disorder Not available 01/14 16:32:46 Brother Depressive disorder Not available 01/14 16:32:46 Father Hypertensive disorder Not available 01/14 16:32:46 Father Diabetes mellitus Not available 2024 17:11:33 Father Hypercholest erolemia Not available 01/14 16:32:46 Paternal Grandmother Hypertensive disorder Not available 01/14 16:32:46 Paternal Grandmother Heart disease Not available 01/14 16:32:46 Paternal Grandmother Osteoporosis Not availab le 02/01/2025 16:32:46 Paternal Grandmother Diabetes mellitus Not available 01/14 16:32:46 Paternal Grandmother Hypercholest erolemia Not available 01/14 16:32:46 Mother Hypertensive disorder Not available 01/14 16:32:46 Mother High risk Not available 01/14 16:32:46 Mother Osteoporosis Not av ailable 02/01/2025 16:32:46 Mother Hypercholest erolemia Not available 01/14 16:32:46 Maternal Aunt Disorder of thyroid gland Not available 01/14 16:32:46 Maternal Aunt Hypercholest erolemia Not available 01/14 16:32:46 Paternal Aunt Disorder of thyroid gland Not available 01/14 16:32:46 Paternal Aunt Diabetes mellitus Not available 01/14 16:32:46 Paternal Aunt Hypercholest erolemia Not available 01/14 16:32:46 Maternal Grandmother Anxiety disorder Not available 01/14 16:32:46 Maternal Grandmother Hypertensive disorder Not available 01/14 16:32:46 Maternal Grandmother Osteoporosis Not availab le 02/01/2025 16:32:46 Maternal Grandmother Hypercholest erolemia Not available 01/14 16:32:46 Maternal Grandfather Hypertensive disorder Not available 01/14 16:32:46 Maternal Grandfather Osteoporosis Not availab le 02/01/2025 16:32:46 Maternal Grandfather Hypercholest erolemia Not available 01/14 16:32:46 Paternal Grandfather Hypertensive disorder Not available 01/14 16:32:46 Paternal Grandfather Osteoporosis Not availab le 02/01/2025 16:32:46 Paternal Grandfather Diabetes mellitus Not available 01/14 16:32:46 Paternal Grandfather Hypercholest erolemia Not available 01/14 16:32:46 Maternal Uncle Hypercholest erolemia Not available 01/14 16:32:46 Unspecified Relation Diabetes mellitus Not available 01/14 16:32:46 Medical History Condition Response Allergies (Food, seasonal, environmental ) Y Other Y Breast Cancer N Drug/Latex Allergies/Reactions Y Blood Transfusion N Dermatologic Disorders N Lung Disease N Defects or Inherited Disease Y Breast Problem N Gestational Diabetes N Hematologic disorders N Anesthesia Complications N History of STI N Deep Vein Thrombosis N Polycystic ovary syndrome N Anxiety Disorder Y Autoimmune disease Y Arthritis N Infertility N Polyps N Acid Reflux (GERD) N History of abnormal pap N Cancer N Stroke N Varicosities N Neurologic/Epilepsy Y Endometriosis N High Cholesterol N Headaches Y Fibromyalgia N Kidney Disease N Heart Problems N Kidney or Bladder Problems N Thyroid Problems N GI Problems N Eating Disorder N Anemia N Art (IVF or FET) N Psychiatric Illness N Ovarian Cancer N Diabetes Y Pulmonary (TB, Asthma) Y Hepatitis/Liver Disease N No Past Medical History N Eczema N Urinary Tract Infection N Abuse/Domestic Violence N Asthma Y Trauma/Violence N Depression/ depression Y Heart Disease N Pre-Eclampsia N Hypertension N Osteoporosis N Thrombophilias N Gynecological History Statement/Question Response Date of Last Mammogram Date of LMP 10/06/2024 N Was last menstrual period normal N STIs/STDs N HPV Vaccine N Current Control Method Are cycles usually normal Y Date of Last Colonoscopy Sexually Active? Y Menses Monthly Y Date of DEXA bone scan Age of first menstrual cycle 13 Date of Last Pap Smear 04/21/2024 Sexual Problems? N LMP Approximate N Obstetrics History GPAL:G 1 P 0 0 0 0 Type Value Living 0 Total 1 Past Encounters Encounter ID Performer Location Encounter Start Date Encounter Closed Date Diagnosis/Indication Diagnosis SNOMED-CT Code Diagnosis ICD10 Code Diagnosis Note [id number] Diego Mclaughlin MD [facility] [address] [address] 12/06/2024 16:46:41 12/06/2024 17:15:17 [id number] DONALD YOON MD [facility] [address] [address] 12/06/2024 16:47:34 12/08/2024 23:24:01 test positive 139228052 Z32.01 1. Exam today within normal limits.2. Ultrasound today confirms GA and viability. EDC . GC/Clamydi a testing done: will f/u as indicated. 4. ACOG guidelines and plan of care for reviewed with patient. All questions answered.5 . Return to office at 12 weeks for new OB visit6. Will need new OB labs at next visit.7. Genetic screening: desires. Type 1 erma betes mellitus 29419407 E10.9 - well controlled , most recent A1c 4.8%- currently on pens, had pump malfunctio n- discussed risks of T1DM in - recommend MFM referral Asthma 310500088 J45.90 9 - well controlled on current regimen Fracture of coccyx 87406 1005 S32.2XXS - hx of; unclear if prior fracture will affect vaginal delivery- previous epidural attempts unsuccessf ul [id number] Diego Mclaughlin MD [facility] [address],[place] [address] 01/02/2025 13:38:24 01/02/2025 14:30:43 screening 248947674 Z36.82 Z3A.12 [id number] DONALD YOON MD [facility] [address],[place] [address] 01/02/2025 13:39:45 01/04/2025 15:58:16 Gestation period, 12 weeks 40488899 Z3A.12 Fracture of coccyx 03658 1005 S32.2XXS - hx of; unclear if prior fracture will affect vaginal delivery- previous epidural attempts unsuccessf ul Type 1 erma betes mellitus 33147798 E10.9 - well controlled , most recent A1c 4.8%- currently on pens, had pump malfunctio n- discussed risks of T1DM in - [facility] appointmen t scheduled Asthma 523314950 J45.90 9 - well controlled on current regimen [id number] Diego Mclaughlin MD [place] [address],[place] [address] 02/01/2025 16:32:29 02/02/2025 08:26:03 Routine care 377477404 Z34.90 [id number] Diego Mclaughlin MD [place] [address],[place] [address] 03/01/2025 09:40:05 03/01/2025 10:45:25 Routine care 522275702 Z34.90 [id number] Diego Mclaughlin MD [place] [address],[place] [address] 03/27/2025 17:00:53 03/28/2025 08:33:53 Pre-existing type 1 diabetes mellitus in 163221451 O24.012 Z3A.24 [id number] Diego Mclaughlin MD [place] [address],[place] [address] 04/01/2025 09:15:14 04/01/2025 09:55:54 Second trimester 80156333 Z34.02 [id number] Diego Mclaughlin MD [place] [address] [address] 04/17/2025 14:00:28 04/17/2025 14:55:09 Third trimester 51855988 Z34.03 [id number] DONALD YOON MD [place] [address] [address] 05/01/2025 14:50:24 05/01/2025 15:47:47 Heartburn 31583362 R12 - start tums and pepcid Type 1 erma betes mellitus 15989153 E10.9 - well controlled , most recent A1c 4.8%- currently on insulin pump ICR 1:16- discussed risks of T1DM in - [facility] folowing Severe asthma 113610245 J45.909 - well controlled on current regimen Fracture of coccyx 69971 1005 S32.2XXS - hx of; unclear if prior fracture will affect vaginal delivery- previous epidural attempts unsuccessf ul Gestation period, 29 weeks 85030580 Z3A.29 Health Concerns Section Related Observation LastModified by Organization Detai ls LastModified Time None Recorded Concern Status LastModified by Organization Details LastModified Time None Recorded Advance Directives Directive N: Payers Insurance Date Sequence Insurance Name Policy Number Policy Castillo Covered Member ID Castillo Member ID Guarantor Name 04/28/2025 1 [facility] [id number] Kera Carreon [id number] Kera Carreon 04/28/2025 2 [id number] [id number] Kera Carreon OBGyn Episode Ob Episode Information Episode Created Date Number of Fetuses Patient Bloodtype Patient rh Status Prepregnancy Weight lbs Domestic Partner Domestic Partner Phone Father Name Victims Advocate Clerk/Specialist Status 01/02/20 25 1 O Positive 131 Tiven Lauri OPEN Fetus Data First Name Last Name Admitted to NICU Weight (g) Sex Living Outcome Pediatric Complications Fetus ID Race Codes Race Delivery Type [id number] [facility] baselin e CMP/UPC labs wnl serial growth after 28wks Echo and growth scheduled 04/12/25ASA 81mg daily Delivery location - [place] Problem Name Start Date End Date Resolution Snomed Code Not e Type 1 diabetes mellitus 93604860 A1c 4.8%; Delvin nt regimen: ICR 1:16, back on insulin pumpMFM is managing sugars 2wkly testing with BPP starting at 32wks Carrier of cystic fibrosis gene mutation 01/30/2025 [id number] Headache 91556324 Severe asthma 088709235 on com bivent, breo, and albuterol (has not needed in 2 months) Fracture of coccyx 699911149 t hree attempted epidurals for pain control in that all failed; consider anesthesia consult Los Calculation Initial Los Date Initial Exam Date Initial Exam Provider Initial Ultrasound Date Last Menstrual Period Date Ultra Sound Weeks Gestation 01/02/2025 12/06/2024 10/06/2024 8 Eighteen To Twenty Week Los Update Ultra Sound Date Fundal Height At Umbil Quickening Date Ultra Sound Latest Weeks Gestation Final Los Confirmed By Final Los Confirmed Date Final Los Date Ultra Sound Latest Days Gestation 0 07/13/20 25 0 Pre- Flowsheet Flowsheet Date 01/02/2025 Jackson Score Blood Edema Fundus Height Fundus Units Glucose Ketones Leukocytes Nitrite Labor Signs Protein Cervic Dilation Cervic Effacement Cervic Station Type Weight in lbs Pre/Post Dialysis Refused Weight 131.612759946221 BP Diastolic BP Location Tested BP Systolic BP Type 74 L arm 114 sitting Fetus Heart Rate Present A Present Fetus Movement Comments Patient presents to [facility] care. Hx of T1DM, currently using pens; would like to switch back to insulin pump but currently broken. otherwise complicaed by severe asthma, controlled on current regimen. Also has hx of coccygeal fracture, no longer following with ortho, however has had 3 failed epidurals for pain control. Will consider anesthesia consult prior to delivery to discuss pain conrol options. No nausea or cramping. Had dark brown bleeding for 2 days last week, now resolved. NT/NB wnl today, desires NIPT. Will draw today with new OB labs. RTC 4 weeks for routine care. Flowsheet Date 02/01/2025 Jackson Score Blood Edema Fundus Height Fundus Units Glucose Ketones Leukocytes Nitrite Labor Signs Protein Cervic Dilation Cervic Effacement Cervic Station Type Weight in lbs Pre/Post Dialysis Refused Weight 134.11497578202 BP Diastolic BP Location Tested BP Systolic BP Type 81 L arm 114 sitting Fetus Heart Rate Present A 150 Present Fetus Movement A Yes Comments 24-year-old 1 with t ype 1 diabetes, she also has a spinal column deformity and a traumatic injury to the tailbone that is likely change the anterior- posterior diameter to her pelvis. Discussed the logistics of her care. She is seeing MFM to manage her type 1 diabetes. We will evaluate her pelvis when we start checking her cervix. She is considering primary has concerns about her anesthesia. Has had failed epidurals. Flowsheet Date 03/01/2025 Jackson Score Blood Edema Fundus Height Fundus Units Glucose Ketones Leukocytes Nitrite Labor Signs Protein Cervic Dilation Cervic Effacement Cervic Station Type Weight in lbs Pre/Post Dialysis Refused 140.578867967309 BP Diastolic BP Location Tested BP Systolic BP Type 68 L arm 109 sitting Fetus Heart Rate Present A 149 Present Fetus Movement A Yes Comments patient was given recommenda tions on dizziness, blood pressure should improve over the coming weeks discussed her diabetes management. She is to get a new pump. Has anatomy and echocardiogram upcoming. given recommendations on headache Flowsheet Date 03/27/2025 Jackson Score Blood Edema Fundus Height Fundus Units Glucose Ketones Leukocytes Nitrite Labor Signs Protein Cervic Dilation Cervic Effacement Cervic Station Type Weight in lbs Pre/Post Dialysis Refused BP Diastolic BP Location Tested BP Systolic BP Type Fetus Heart Rate Present Fetus Movement Comments Flowsheet Date 04/01/2025 Jackson Score Blood Edema Fundus Height Fundus Units Glucose Ketones Leukocytes Nitrite Labor Signs Protein Cervic Dilation Cervic Effacement Cervic Station neg none Type Weight in lbs Pre/Post Dialysis Refused Weight 149.62845901124 BP Diastolic BP Location Tested BP Systolic BP Type 75 114 Fetus Heart Rate Present A 145 Fetus Movement A Yes Comments Patient states that is havin g some back pain, discharge, numbness, tingling, dizzyness, headaches and nausea. Flowsheet Date 04/17/2025 Jackson Score Blood Edema Fundus Height Fundus Units Glucose Ketones Leukocytes Nitrite Labor Signs Protein Cervic Dilation Cervic Effacement Cervic Station Type Weight in lbs Pre/Post Dialysis Refused 154.533446102884 BP Diastolic BP Location Tested BP Systolic BP Type 73 L arm 123 sitting Fetus Heart Rate Present A 144 Present Fetus Movement A Yes Comments no complaints, no problems, routine care, no contractions, no vaginal bleeding, no loss of fluid, no cramping. evaluated for cholestasis by MF, Flowsheet Date 05/01/2025 Jackson Score Blood Edema Fundus Height Fundus Units Glucose Ketones Leukocytes Nitrite Labor Signs Protein Cervic Dilation Cervic Effacement Cervic Station Type Weight in lbs Pre/Post Dialysis Refused Weight 159.279593585325 BP Diastolic BP Location Tested BP Systolic BP Type 81 L arm 135 sitting Fetus Heart Rate Present Fetus Movement A Yes Comments Doing well, no issues. No cr amping or bleeding. Having some increased heartburn and related SOB. Will start pepcid and tums. Was seen with ped cardiology for absent ductus venosus, plan for repeat at 36 weeks and echo. Otherwise echo appears normal. MFM managing sugars, overall doing ok. Will start testing at 32 weeks, split sarbjit and Shantel ZAPATA. Discussed delivery timing of 39 weeks. Discussed tdap vaccine and preadmission. RTC 2 weeks. Menstrual History Last Menstrual Date Menses Monthly On Bcp Conception Prior Menses Frequency Hcg Plus Date Menarche Onset Age 1110/06/2024 true Delivery Information Delivery Date Delivery Type Labor Anesthesia Weeks Gestation Incision Type Labor Labor Length Hrs Delivered By Post Complications Tubal Sterilization Discharge Date Comments Discharge Information Feeding Method Contraceptive Method Maternal HG B and HCT Levels
--- OUTSIDE RECORDS SUMMARY | 2025-05-15 14:39 | XMS_ITS | Clinical Summary ---
Author Organization [facility] Address [address] [place] [address] Phone Care Team Providers Care Telecommunications Linesworker Name Role Phone Unavailable Primary Care Provider Unavailabl e Allergies Active Allergy Reactions Criticality Noted Date Comments Pollen Extracts Shortness of Breath/Wheezing High Medications Peak Flow Meter Device [place] [facility] [place]Non[place]Drug; Combo Route) route. Active albuterol (PROVENTIL,NANO HOLLI) 2.5 mg /3 mL (0.083 %) Solution for Nebulization Take 2.5 mg by inhalation every 4 hours as needed for Wheezing. Active inhalational spacing device (Nav Aerosol Leon Enhancer) Spacer by See Admin Instructions route see administration instructions. Active albuterol sulfate HFA 90 mcg/actuation aerosol inhaler Take 2 Puffs by inhalation every 6 hours as needed for Shortness of Breath. Active fexofenadine (YUMIKO) 60 mg tablet Take 180 mg by mouth daily. Active fluticasone/salvador nterol (BREO ELLIPTA INHALATION) Take by inhalation daily. Active ipratropium-albu teroL (Combivent Respimat) 20-100 mcg/actuation Mist Take by inhalation every 4 hours as needed. Active Blood-Glucose Sensor (Dexcom G7 Sensor) Device [place] [facility] [place]Non-Drug; Combo Route) route. Active fluticasone propionate (FLONASE) 50 mcg/spray [place], Suspension nasal inhaler Administer 2 Sprays in each nostril daily. Active MAGNESIUM OXIDE ORAL Take by mouth. Activ e Blood-Glucose Meter (Blood Glucose Monitoring) Kit by [employer].(Non-Drug; Combo Route) route. Active vits15/iron/foli c/dss ( VIT 31-UERX-VEMEJ-DS S ORAL) Take by mouth. Activ e olopatadine HCl (OLOPATADINE BOTH NOSTRIL) Administer in each nostril. Active aspirin (ECOTRIN EC) 81 mg Tablet, Delayed Release (E.C.) Take 81 mg by mouth daily. Active insulin aspart U-100 (NovoLOG U-100 Insulin aspart) 100 unit/mL vialIndications: Pre-existing type 1 diabetes mellitus in in second trimester Take up to 50U per day via SQ insulin pump as directed 20 mL 2 03/02/20 Active famotidine (PEPCID) 20 mg tablet Take 20 mg by mouth 2 times daily. Active ferrous sulfate 325 mg (65 mg iron) tablet Take 1 Tablet (325 mg) by mouth daily. 30 Tablet 3 05/10/20 Active Active Problems Problem Noted Date Diagnosed Date Pre-existing type 1 diabetes mellitus in in second trimester 01/18/2025 Asthma during in second trimester 03/2025 14 weeks gestation of 01/18/2025 Estimated Date of Delivery Comme nts Yes 07/13/2025 Date entered bianca or to episode creation Encounters Date Type Department Care Team Description 05/10/2025 2:30 PM CDT visit [facility] [address] [place] [phone] Ling Blackman MD Asthma during in second trimester (Primary Dx); Pre-existing type 1 diabetes mellitus in in second trimester; Supervision of high risk in third trimester; 30 weeks gestation of 05/10/2025 Chart Note [facility] [place] [facility] [address] [place] [address] Ling Blackman MD Diabetes 05/09/2025 External Device Data STL ABSTRACTION Provider, Abstract 05/09/2025 External Device Data STL ABSTRACTION Provider, Abstract 05/09/2025 External Device Data STL ABSTRACTION Provider, Abstract 05/08/2025 1:15 PM CDT - 05/08/2025 11:59 PM CDT Hospital Encounter [facility] Maternal and Ground Floor S [facility] [address] [place] [phone] Marlee Clemens MD Discharge Disposition: Home or Self Care 05/04/2025 2:39 PM CDT - 05/04/2025 5:04 PM CDT Emergency [facility] Obstetrics Emergency Department [address] [place] [phone] Delicia Dick MD Whalen, Thomas R, MD Right upper quadrant abdominal pain (Primary Dx) Discharge Disposition: Home or Self Care 05/04/2025 Travel 05/02/2025 External Device Data STL ABSTRACTION Provider, Abstract 05/02/2025 Chart Note [facility] [place] [facility] [address] [facility] [address] [place] [phone] Sandra Gonzalez MD Diabetes 04/19/2025 Chart Note [facility] [place] [facility] [address] [facility] [place] [address] Ling Blackman MD Diabetes 04/17/2025 8:00 AM CDT Initial consult [facility] [address] [facility] [address] [phone] Michael Hartman MD abnormality affecting management of mother, single or unspecified fetus (Primary Dx) 04/17/2025 7:32 AM CDT - 04/17/2025 11:59 PM CDT Hospital Encounter [facility] Pediatric Diag Cardio [facility] [place] [facility] [address] [place] [address] Michael Hartman MD Discharge Disposition: Home or Self Care 04/17/2025 Results Follow-Up [facility] [place] [facility] [address] [facility] [place] [place] [address] Tses Vazquez MD COMPREHENSIVE METABOLIC PANEL, HEMOGLOBIN A1C, BILE ACIDS FRACTIONATED AND TOTAL 04/12/2025 3:00 PM CDT visit [facility] [place] [facility] [address] [place] [phone] Tess Vazquez MD Pre-existing type 1 diabetes mellitus in in second trimester (Primary Dx); 14 weeks gestation of ; Itching; Asthma during 04/12/2025 12:41 PM CDT - 04/12/2025 11:59 PM CDT Hospital En[facility] [place] [address] [place] [phone] Patria Boyle MD Discharge Disposition: Home or Self Care 04/12/2025 12:41 PM CDT - 04/12/2025 11:59 PM CDT Hospital Encounter [facility] Ground [facility] [place] [address] [place] [address] Patria Boyle MD Discharge Disposition: Home or Self Care 04/12/2025 Orders Only [facility]aternal and Ground Floor [place] [address] [place] [address] Marlee Clemens MD Abnormal ultrasonic finding on screening of mother (Primary Dx) 04/12/2025 Chart Note [facility] [place] [facility] [address] [place] [address] Tess Vazquez MD Diabetes 04/07/2025 Chart Note [facility] [place] [facility] [address] [place] [address] Tess Vazquez MD Diabetes 04/06/2025 External Device Data STL ABSTRACTION Provider, Abstract 04/06/2025 External Device Data STL ABSTRACTION Provider, Abstract 04/05/2025 External Device Data STL ABSTRACTION Provider, Abstract 04/04/2025 External Device Data STL ABSTRACTION Provider, Abstract 03/31/2025 Chart Note [facility] [place] [facility] [address] [place] [address] Karely Renae NP Diabetes 03/22/2025 3:30 PM CDT Video Visit [facility] [address] [place] [address] Karely Renae NP Pre-existing type 1 diabetes mellitus in in second trimester (Primary Dx); Asthma during in second trimester; 23 weeks gestation of 03/22/2025 Chart Note [facility] [address] [place] [address] Karely Renae NP Diabetes 03/14/2025 Chart Note [facility] [place] [facility] [address] [place] [address] Karely Renae NP 03/06/2025 Telephone [facility] [address] [place] [address] Latonia Collins MD Diabetes 03/03/2025 Chart Note [facility] [address] [place] [address] Sandra Gonzalez MD Diabetes 03/02/2025 Telephone [facility] [place] [facility] [address] [place] [address] Latonia Collins MD Diabetes 02/28/2025 External Device Data STL ABSTRACTION Provider, Abstract 02/27/2025 1:46 PM CDT - 02/27/2025 11:59 PM CDT Hospital Encounter [facility] [address] [place] [address] Donald Jamison MD Discharge Disposition: Home or Self Care 02/21/2025 3:30 PM CDT Video Visit [facility] [address] [facility] [address] [place] [address] Karely Renae NP Pre-existing type 1 diabetes mellitus in in second trimester (Primary Dx); Asthma during in second trimester; 19 weeks gestation of 02/21/2025 Chart Note [facility] [address] [facility] [address] [place] [address] Karely Renae NP Diabetes 02/14/2025 Chart Note [facility] [place] [facility] [address] [facility] [address] [place] [address] Karely Renae NP Diabetes from Last 3 Months Social History Tobacco Use Types Packs/Day Years Used Date Smoking Tobacco: Never Smokeless Tobacco: Never Tobacco Cessation:Counseling Given: Not Answered Alcohol Use Standard Drinks/Week Comments Not Currently 0 (1 standard drink = 0.6 oz pur e alcohol) Feeling Safe Answer Date Recorded Are you in a relationship wi th someone who hurts you emotionally and/or physically? 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 Gender Identity Not on file Sexual Orientation Not on file Last Filed Vital Signs Vital Sign Reading Time Taken Comments Blood Pressure 112/62 05/10/2025 2:25 PM CDT Pulse 80 05/10/2025 2:25 PM CDT Temperature 36.9 C (98.5 F) 05/04/2025 2:37 PM CDT Respiratory Rate 16 05/04/2025 3:29 PM CDT Oxygen Saturation 98% 05/10/2025 2:25 PM CDT Inhaled Oxygen Concentration - - Weight 73 kg (161 lb) 05/10/2025 2:25 PM CDT Height 154.9 cm (5' 1) 05/04/2025 2:37 PM CDT Body Mass Index 30.42 05/04/2025 2:37 PM CDT Plan of Treatment Upcoming Encounters Date Type Department Care Team (Late st Contact Info) Description 05/25/2025 9:00 AM CDT Appointment [facility] [place] [address] [place] [address] Marlee Clemens MD [address] [place] [address] 06/01/2025 9:00 AM CDT Appointment [facility] [address] [place] [address] [place] [address] Marlee Clemens MD [address] [place] [address] 06/05/2025 8:00 AM CDT Office Visit [facility] [address] [facility] [address] [address] Michael Hartman MD [address] [facility] [address] [place] [address] 06/05/2025 9:00 AM CDT Appointment [facility] [address] [place] [address] [place] [address] Marlee Clemens MD [address] [place] [address] 06/05/2025 9:45 AM CDT Appointment [facility] [address] [place] [address] [place] [address] Latonia Collins MD [address] [place] [address] 06/08/2025 8:45 AM CDT Appointment [facility] [address] [place] [address] [place] [phone] Marlee Clemens MD [address] [facility] [address] [address] 06/08/2025 11:00 AM CDT visit [facility] [address] [facility] [address] [address] 06/15/2025 9:00 AM CDT Appointment [facility] [address] [place] [phone] Marlee Clemens MD [address] [facility] [address] [phone] 06/22/2025 9:00 AM CDT Appointment [facility] [address] [place] [phone] Latonia Collins MD [address] [facility] [address] [place] [address] 06/29/2025 9:00 AM CDT Appointment [facility] [address] [place] [address] Latonia Collins MD [address] [facility] [address] [place] [address] 07/06/2025 9:00 AM CDT Appointment [facility] [place] [address] [place] [phone] Latonia Collins MD [address] [facility] [address] [place] [address] Health Maintenance Due Date Last Done Comments HPV VACCINES (1 - 3-dose series) 2015 DIABETES MICROALBUMIN ANNUAL SCREEN 2018 LDL CHOLESTEROL ANNUAL 2018 DTAP/TDAP/TD VACCINES (1 - Tdap) 2019 HEPATITIS B VACCINES (1 of 3 - 19+ 3-dose series) 2019 CERVICAL CANCER SCREENING 2021 HPV/Cotest (21-29) 2021 PAP SMEAR 2021 INFLUENZA VACCINE (#1) 2024 DIABETES HBA1C Q 6 MONTHS 10/14/2025 04/13/2025, DIABETES ANNUAL FOOT EXAM 11/17/2025 11/17/2024 DIABETES ANNUAL RETINAL EXAM 11/17/2025 11/17/2024 RSV VACCINE (60+ or ) (No Doses Required) Completed Procedures Procedure Name Priority Date/Time Associated Diagnosis Comments US OB FOLLOW UP PER FETUS Routine 05/08/2025 1:46 PM CDT Type 1 diabetes mellitus complicating , antepartum Abnormal finding on ultrasound NONSTRESS TEST Stat 05/04/2025 4:08 PM CDT AMYLASE Stat 05/04/2025 3:36 PM CDT LIPASE Stat 05/04/2025 3:36 PM CDT PROTEIN , RANDOM URINE Stat 3:36 PM CDT COMPREHENSIVE METABOLIC PANEL Stat 05/04/2025 3:36 PM CDT CBC WITH DIFFERENTIAL Stat 05/04/2025 3:36 PM CDT ECHOCARDIOGRAM 2D W DOPPLER Routine 04/17/2025 8:55 AM CDT abnormality affecting management of mother, single or unspecified fetus HEMOGLOBIN A1C Routine 04/13/2025 9:39 AM CDT Pre-existing type 1 diabetes mellitus in in second trimester 14 weeks gestation of COMPREHENSIVE METABOLIC PANEL Routine 04/13/2025 9:39 AM CDT Pre-existing type 1 diabetes mellitus in in second trimester 14 weeks gestation of Itching BILE ACIDS FRACTIONATED AND TOTAL Routine 04/13/2025 9:39 AM CDT Pre-existing type 1 diabetes mellitus in in second trimester 14 weeks gestation of Itching US OB FOLLOW UP PER FETUS Routine 04/12/2025 1:41 PM CDT Pre-existing type 1 diabetes affecting , antepartum Maternal asthma complicating 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), managed as type 1 (CMS/HCC) 14 weeks gestation of ECHO 2D + COLOR FLOW VELOCITY Routine 04/12/2025 1:41 PM CDT Pre-existing type 1 diabetes affecting , antepartum Maternal asthma 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 Anatomical Region Laterality Modality Pelvis Ultrasound 05/08/2025 1:30 PM CDT Narrative 05/08/2025 1:54 PM CDT STL FOLLOW UP ----- Pat. Name: SHEILA WINKLER Study Date: 05/08/2025 1:30pm Pat. NO: [id number] Referring MD: DONALD JAMISON MD Site: [facility] Marketing Executive: Radha Riley RDMS : 2000 Age: 24 ----- INDICATION ----- Diabetes type I Asthma Complicating CODING ----- Diagnoses Z3A.30: Weeks of gestation O99.513: Diseases of the respiratory system complicating O24.013: Pre-existing type 1 diabetes mellitus, in O09.893: Supervision of other high risk pregnancies Procedures 85925: Ultrasound, uterus, real time with image documentation, follow up, transabdominal approach per fetus HISTORY ----- OB History 1. Para 0 MATERNAL ASSESSMENT ----- Physical Exam Weight 61 kg. Initial weight 61 kg, 135 lb. BMI 25.51 kg/m . Initial BMI 25.51 kg/m . Weight gain 0 kg, 0 lb METHOD ----- Transabdominal ultrasound examination ----- Cole . Number of fetuses: 1 DATING ----- GA by prior assessment 30 w + 4 d ALEJANDRINA by prior assessment: 07/13/2025 Ultrasound examination on: 05/08/2025 GA by U/S based upon: AC, BPD, EFW, Femur, HC GA by U/S 31 w + 4 d ALEJANDRINA by U/S: 07/06/2025 Method of dating: Restore dating from previous exam Assigned: based on stated ALEJANDRINA, selected on 02/27/2025 Assigned GA 30 w + 4 d Assigned ALEJANDRINA: 07/13/2025 BIOMETRY ----- BPD 79.7 mm 32w 0d 81% Hadlock OFD 99.1 mm 32w 0d 85% Bree HC 285.3 mm 31w 2d 34% Hadlock AC 271.2 mm 31w 1d 65% Hadlock Femur 62.0 mm 32w 1d 78% Hadlock HC / AC 1.05 35% Nicolaides Weight Calculation: EFW 1,793 g 31w 1d 71% Hadlock EFW (lb,oz) 3 lb 15 oz EFW by Hadlock ([id number]) Head / Face / Neck Biometry: Camp Advisor 3.6 mm Extremities / Bony Struc Biometry: FL / BPD 0.78 FL / HC 0.22 FL / AC 0.23 GENERAL EVALUATION ----- Cardiac activity present. FHR 134 bpm. movements: present. Presentation: cephalic Placenta: Placental site: anterior Umbilical cord: Cord vessels: 3 vessel cord. Insertion site: placental insertion: normal Amniotic fluid: Amount of AF: normal amount. MVP 7.7 cm. TREVOR 19.7 cm. Q1 7.7 cm, Q2 5.0 cm, Q3 2.9 cm, Q4 4.2 cm ANATOMY ----- The following structures appear normal: Head / Neck Cranium. Lateral ventricles. Cavum septi pellucidi. Heart / Thorax 4-chamber view. RVOT view. LVOT view. Diaphragm. Abdomen Stomach. Kidneys. Bladder. sex: female. GROWTH OVERVIEW ----- Exam date GA BPD (mm) HC (mm) AC (mm) FL (mm) HL (mm) EFW (g) 02/27/2025 20w 4d 46.2 25% 165.6 3% 148.5 29% 36.0 71% 30.8 35% 361 43% 04/12/2025 26w 6d 63.8 11% 241.7 9% 223.3 38% 50.2 39% 974 33% 05/08/2025 30w 4d 79.7 81% 285.3 34% 271.2 65% 62.0 78% 1,793 71% COMMENT ----- Patient's name and date of were verified by the circuit board inspector prior to the exam IMPRESSION ----- Impression: Cole viable intrauterine at 30w 4d in cephalic presentation. Estimated weight is 1793 g (71%ile) with abdominal circumference at the 65%ile. Amniotic fluid volume is normal amount, (amniotic fluid index = 19.7 cm, maximum vertical pocket = 7.7 cm). Known absence of DV, confirmed again today. Recommendation: Twice weekly testing. Follow up ultrasound for growth in 4 weeks. Thank you for inviting us to participate in your patient's care Procedure Note Latonia Collins MD - 05/08/2025 STL FOLLOW UP ----- Pat. Name:Chiki WINKLER Date:05/08/2025 1:30pm Pat. NO: [id number] MD:DONALD JAMISON MD [facility] Riley RDMS :2000Age:24 ----- INDICATION ----- Diabetes type I Asthma Complicating CODING ----- Diagnoses Z3A.30: Weeks of gestation O99.513: Diseases of the respiratory systemcomplicating O24.013: Pre-existing type 1 diabetes mellitus, inpregnancy O09.893: Supervision of other high riskpregnancies Procedures 39542: Ultrasound, uterus, real time withimage documentation, follow up, transabdominal approach per fetus HISTORY ----- OB History 1. Para 0 MATERNAL ASSESSMENT ----- Physical Exam Weight 61 kg. Initial weight 61 kg, 135 lb. BMI25.51 kg/m . Initial BMI 25.51 kg/m . Weight gain 0 kg, 0 lb METHOD ----- Transabdominal ultrasound examination ----- Cole . Number of fetuses: 1 DATING ----- GA by prior [id number] w + 4 d ALEJANDRINA by prior assessment:07/13/2025 Ultrasound examination on:05/08/2025 GA by U/S based upon:AC, BPD, EFW, Femur, HC GA by U/S31 w + 4 d ALEJANDRINA by U/S:07/06/2025 Method of dating:Restore dating from previous exam Assigned:based on stated ALEJANDRINA, selected on 02/27/2025 Assigned GA30 w + 4 d Assigned ALEJANDRINA:07/13/2025 BIOMETRY ----- BPD 79.7 mm 32w 0d 81%Hadlock OFD 99.1 mm 32w 0d 85%Bree HC 285.3 mm 31w 2d 34%Hadlock AC 271.2 mm 31w 1d 65%Hadlock Femur 62.0 mm 32w 1d 78%Hadlock HC / AC 1.05 35%Nicolaides Weight Calculation: EFW 1,793 g 31w 1d71% Hadlock EFW (lb,oz) 3 lb 15 oz EFW by Hadlock ([id number]) Head / Face / Neck Biometry: Camp Advisor 3.6mm Extremities / Bony Struc Biometry: FL / BPD 0.78 FL / HC 0.22 FL / AC 0.23 GENERAL EVALUATION ----- Cardiac activity present. FHR 134 bpm. movements: present.Presentation: cephalic Placenta: Placental site: anterior Umbilical cord: Cord vessels: 3 vessel cord. Insertion site: placentalinsertion: normal Amniotic fluid: Amount of AF: normal amount. MVP 7.7 cm. TREVOR 19.7 cm. Q17.7 cm, Q2 5.0 cm, Q3 2.9 cm, Q4 4.2 cm ANATOMY ----- The following structures appear normal: Head / Neck Cranium. Lateral ventricles. Cavum septipellucidi. Heart / Thorax 4-chamber view. RVOT view. LVOT view. Diaphragm. Abdomen Stomach. Kidneys. Bladder. sex: female. GROWTH OVERVIEW ----- Exam date GA BPD (mm) HC (mm) AC (mm) FL(mm) HL (mm) EFW (g) 02/27/2025 20w 4d 46.2 25% 165.6 3% 148.5 29%36.0 71% 30.8 35% 361 43% 04/12/2025 26w 6d 63.8 11% 241.7 9% 223.3 38%50.2 39% 974 33% 05/08/2025 30w 4d 79.7 81% 285.3 34% 271.2 65%62.0 78% 1,793 71% COMMENT ----- Patient's name and date of were verified by the circuit board inspector prior tothe exam IMPRESSION ----- Impression: Cole viable intrauterine at 30w 4d in cephalicpresentation. Estimated weight is 1793 g (71%ile) with abdominal circumference atthe 65%ile. Amniotic fluid volume is normal amount, (amniotic fluid index = 19.7 cm,maximum vertical pocket = 7.7 cm). Known absence of DV, confirmed again today. Recommendation: Twice weekly testing. Follow up ultrasound for growth in 4 weeks. Thank you for inviting us to participate in your patient's care us Marlee Clemens MD ORDERABLES Final Result * NONSTRESS TEST (05/04/2025 4:08 PM CDT) Narrative Kash Draper MD - 05/04/2025 4:08 PM CDT Kash Draper MD 05/04/2025 4:44 PM NONSTRESS TEST Date/Time: 05/04/2025 4:08 PM Performed by: Kash Draper MD Authorized by: Kash Draper MD Comments: Non-Stress Test Indication: abdominal pain Gestational Age: 30w0d Baseline: 140s bpm Variability: moderate Accelerations: present Decelerations: Absent TOCO: CTXs no Interpretation: reactive Recommendation(s): Continue MFM/PNC as scheduled Comments: us Kash Draper MD OB GYNE ORDERABLES Final Resu lt * (ABNORMAL) CBC WITH DIFFERENTIAL (05/04/2025 3:36 PM CDT) WBC 12.3(H) 4.0 - 9.8 K/uL 05/04/2025 3:57 PM CDT [facility] RBC 3.79(L) 3.90 - 4.90 M/uL 05/04/2025 3:57 PM CDT [facility] HEMOGLOBIN 11.4(L) 11.8 - 14.8 g/dL 05/04/2025 3:57 PM CDT [facility] HEMATOCRIT 34.7(L) 35.5 - 44.0 % 05/04/2025 3:57 PM CDT [facility] MCV 91.6 82.0 - 99.0 fL 05/04/2025 3:57 PM CDT [facility] MCH 30.1 27.2 - 32.6 pg 05/04/2025 3:57 PM CDT [facility] MCHC 32.9 31.5 - 35.5 g/dL 05/04/2025 3:57 PM CDT [facility] RDW 13.0 11.5 - 14.5 % 05/04/2025 3:57 PM CDT [facility] RDW-STDEV 42.3 37.1 - 48.7 fL 05/04/2025 3:57 PM CDT [facility] PLATELETS 181 140 - 350 K/uL 05/04/2025 3:57 PM CDT [facility] MPV 10.3 9.3 - 12.4 fL 05/04/2025 3:57 PM CDT [facility] NEUTROPHILS 73 % 05/04/2025 3:57 PM CDT [facility] LYMPHOCYTES 16 % 05/04/2025 3:57 PM CDT [facility] MONOCYTES 8 % 05/04/2025 3:57 PM CDT [facility] SERVICES - [facility] EOSINOPHILS 1 % 05/04/2025 3:57 PM CDT [facility] SERVICES - [facility] BASOPHILS 0 % 05/04/2025 3:57 PM CDT [facility] SERVICES - [facility] IMMATURE GRANULOCYTES 3 % 05/04/2025 3:57 PM CDT [facility] SERVICES - [facility] Comment:IG (Immature Granulo cyte) count includes Metamyelocytes, Myelocytes, and Promyelocytes NEUTROPHIL ABSOLUTE 8.96(H) 1.90 - 7.00 K/uL 05/04/2025 3:57 PM CDT [facility] SERVICES - [facility] LYMPHOCYTE ABSOLUTE 1.97 0.70 - 4.50 K/uL 05/04/2025 3:57 PM CDT [facility] - [facility] MONOCYTE ABSOLUTE 0.94 0.10 - 1.30 K/uL 05/04/2025 3:57 PM CDT [facility] SERVICES - . [facility] EOSINOPHIL ABSOLUTE 0.10 0.00 - 0.70 K/uL 05/04/2025 3:57 PM CDT [facility] SERVICES - . [facility] BASOPHILS ABSOLUTE 0.04 0.00 - 0.20 K/uL 05/04/2025 3:57 PM CDT [facility] SERVICES - [facility] IMMATURE GRANULOCYTES ABSOLUTE 0.33(H) 0.00 - 0.03 K/uL 05/04/2025 3:57 PM CDT [facility] - [facility] Blood Venipuncture / Unknown 05/04/2025 3:36 PM CDT 05/04/2025 3:42 PM CDT us Kash Draper MD HEMATOLOGY ORDERABLES Final R esult [id number] [address] [facility] [place] [address] * (ABNORMAL) PROTEIN/CREATININE RATIO, URINE (05/04/2025 3:36 PM CDT) [facility] PROTEIN CONCENTRATION 22(H) 0 - 20 mg/dL 05/04/2025 4:13 PM CDT [facility] CREATININE, URINE 204.0 29.0 - 226.0 mg/dL 05/04/2025 4:13 PM CDT [facility] Comment:Reference Range vari es with fluid intake and diet. PROTEIN/CREAT RATIO, URINE 0.11 0.00 - 0.19 mg/mg Creatinine 05/04/2025 4:13 PM CDT [facility] Urine URINE SPECIMEN OBTAINED BY CLEAN CATCH PROCEDURE / Unknown Collection / Unknown 05/04/2025 3:36 PM CDT 05/04/2025 3:42 PM CDT Narrative [facility] - 05/04/2025 4:13 PM CDT The ACOG 2013 Guidelines recommend using a cutoff of >/= 0.30 protein/creatinine ratio for the diagnosis and management of preeclampsia. Kash Draper MD URINE ORDERABLES Final Result Performing Organization Address City/[facility]/ZIP Co de Phone Number [facility] CLIA# [id number] [address] [place] [address] * LIPASE (05/04/2025 3:36 PM CDT) [facility] LIPASE 41 13 - 60 U/L 05/04/2025 4:20 PM CDT [facility] Blood Venipuncture / Unknown 05/04/2025 3:36 PM CDT 05/04/2025 3:42 PM CDT Kash Draper MD CHEMISTRY ORDERABLES Final Re sult [facility] CLIA# [id number] [address] [place] [address] * AMYLASE (05/04/2025 3:36 PM CDT) AMYLASE 54 28 - 100 U/L 05/04/2025 4:20 PM CDT [facility] Blood Venipuncture / Unknown 05/04/2025 3:36 PM CDT 05/04/2025 3:42 PM CDT Kash Draper MD CHEMISTRY ORDERABLES Final Re sult [facility] SERVICES [facility] CLIA# [id number] [address] [place], [place] [address] * (ABNORMAL) COMPREHENSIVE METABOLIC PANEL (05/04/2025 3:36 PM CDT) Only the most recent of2 resultswithin the time period is included. Pathologist [facility] SODIUM 134(L) 136 - 145 mmol/L 05/04/2025 4:20 PM [facility] LABORATORY SERVICES [facility]. [facility] POTASSIUM 3.8 3.5 - 5.0 mmol/L 05/04/2025 4:20 PM T [facility] LABORATORY SERVICES [facility]. [facility] CHLORIDE 102 98 - 107 mmol/L 05/04/2025 4:20 PM [facility]. [facility] CO2 20(L) 22 - 29 mmol/L 05/04/2025 4:20 PM [facility] LABORATORY SERVICES [facility]. [facility] CALCIUM 9.0 8.6 - 10.2 mg/dL 05/04/2025 4:20 PM T [facility] BUN 5(L) 6 - 20 mg/dL 05/04/2025 4:20 PM [facility]. [facility] CREATININE 0.55 0.51 - 0.95 mg/dL 05/04/2025 4:20 PM T [facility] LABORATORY SERVICES - . [facility] GLUCOSE 105(H) 74 - 99 mg/dL 05/04/2025 4:20 PM [facility]. [facility] TOTAL PROTEIN 6.7 6.7 - 8.6 g/dL 05/04/2025 4:20 PM [facility] LABORATORY SERVICES - . [facility] ALBUMIN 3.4(L) 3.5 - 5.2 g/dL 05/04/2025 4:20 PM CDT [facility] BILIRUBIN TOTAL 0.2 0.0 - 1.2 mg/dL 05/04/2025 4:20 PM CDT [facility] ALKALINE PHOSPHATASE 103 35 - 104 U/L 05/04/2025 4:20 PM CDT [facility] AST 22 <33 U/L 05/04/2025 4:20 PM CDT [facility] ALT 15 <34 U/L 05/04/2025 4:20 PM CDT [facility] GFR >60 >=60 mL/min/1.7 3 sq meter 05/04/2025 4:20 PM CDT [facility] Comment:eGFR calculated with 2020 CKD-EPI equation. Vegetarian diet, extremely high or low muscle mass, and may affect results. Cystatin C with Glomerular Filtration Rate is a suitable alternative for these patients. ANION GAP 12 8 - 16 mmol/L 05/04/2025 4:20 PM CDT [facility] Blood Venipuncture / Unknown 05/04/2025 3:36 PM CDT 05/04/2025 3:42 PM CDT Narrative [facility] - 05/04/2025 4:20 PM CDT Samples containing indocyanine green cause interferences on Total and/or Direct Bilirubin and must not be measured. us Kash Draper MD CHEMISTRY ORDERABLES Final Re sult [facility]# [id number] [address] [facility] [place] [address] * ECHOCARDIOGRAM 2D W DOPPLER (04/17/2025 8:55 AM CDT) 04/17/2025 7:58 AM CDT Narrative INTERFACE SYSTEM - 04/19/2025 10:02 AM CDT *[facility]* Echocardiogram Report Complete 2D, complete spectral Doppler, and color Doppler PATIENT: Sheila Winkler *STUDY DATE/TIME:* Apr 17 2025 7:58AM *HEIGHT:* 154.9cm / (61in) /AGE: 01 2000 / 24year(s) *WEIGHT:* 68.9kg / (152lb) GENDER: F *BSA/BMI:* 1.68m^2 / 28.7kg/m^2 *BP:* 124 / 79 *IMAGING FACILITY:* [facility] *REFERRING PHYSICIAN:* Brie Major M.D. *ORDERING PROVIDER:* Michael Hartman M.D. *READING PHYSICIAN:* Michael Hartman M.D. *CALCULATION REVIEWER:* Makeda Smith REASON FOR EXAM: Abnormal ultrasound. STUDY AND PROCEDURE DATA: echocardiography, initial or complete study. Institution: [facility]. Procedure: Transabdominal echocardiogram was performed for congenital heart disease evaluation. Views were limited by position. Expected delivery date: Estimated delivery date: 07/13/2025. Gestational age: 27wk. CONCLUSIONS: 2-DIMENSIONAL STUDY. Single gestation with lie in cephalic presentation. All four cardiac chambers were visualized. The cardiac chambers were balanced in size. All four cardiac valves were visualized and appeared normal. The interventricular septum appeared intact. A stretched patent foramen ovale seen . Both great arteries were visualized ,were normal in size and were normally related. No pericardial effusion was seen. No pleural effusion seen. No ascites seen. No mass is seen around the heart. The heart appeared to be located in the normal position in the chest. Pulmonary venous drainage, systemic venous drainage, and aortic arch could not be well visualized but most likely normal No diaphragmatic hernias seen. Normal 3 vessel cord. COLOR FLOW DOPPLER ECHOCARDIOGRAM: No turbulence, insufficiency seen across the aortic, pulmonary, mitral or tricuspid valve. Normal right -to-left shunt across foramen ovale and ductus arteriosus. PULSE AND CONTINUOUS WAVE DOPPLER: Pulse and continuous wave Doppler confirmed the above finding. M-MODE ECHOCARDIOGRAM: No arrhythmia seen. The heart rate was 152 /min with 1:1 conduction. IMPRESSION: No ductus venosus was visualized No clear cut structural or functional cardiac abnormality is seen. The heart is in normal position. Visceral-atrial situs, ventricular situs, and relationship of great arteries are normal. Patent ductus arteriosus is visualized with normal shunting. Right to left. No pericardial effusion is seen. No pleural effusion seen. No ascites seen. No arrhythmia is seen. Limitation of echocardiography explained. FINDINGS: DESCRIPTION One fetus is present. lie in Cephalic-presentation. Interpreted and electronically signed by Michael Hartman M.D. 04/19/2025 10:02 Procedure Note Michael Hartman MD - 04/19/2025 *[facility]* Echocardiogram Report Complete 2D, complete spectral Doppler, and color Doppler PATIENT: Sheila Winkler *STUDY DATE/TIME:* Apr 17 2025 7:58AM *HEIGHT:* 154.9cm / (61in) /AGE: 01 2000 / 24year(s) *WEIGHT:* 68.9kg / (152lb) GENDER: F *BSA/BMI:* 1.68m^2 / 28.7kg/m^2 *BP:* 124 / 79 *IMAGING FACILITY:* [facility] *REFERRING PHYSICIAN:* Brie Major M.D. *ORDERING PROVIDER:* Michael Hartman M.D. *READING PHYSICIAN:* Michael Hartman M.D. *CALCULATION REVIEWER:* Makeda Smith REASON FOR EXAM: Abnormal ultrasound. STUDY AND PROCEDURE DATA: echocardiography, initial or completestudy. Institution: [facility]. Procedure: Transabdominal fetalechocardiogram was performed for congenital heart disease evaluation. Views were limitedby position. Expected delivery date: Estimated delivery date: 07/13/2025. Gestational age: 27wk. CONCLUSIONS: 2-DIMENSIONAL STUDY. Single gestation with lie in cephalic presentation. All fourcardiac chambers were visualized. The cardiac chambers were balanced in size.All four cardiac valves were visualized and appeared normal. The interventricular septum appeared intact. A stretched patent foramenovale seen . Both great arteries were visualized ,were normal in size and were normally related. No pericardial effusion was seen. No pleural effusion seen. No ascites seen. No mass is seen around the heart. The heart appeared to be located in the normal position in the chest. Pulmonary venous drainage, systemic venous drainage, and aortic arch could not be well visualized but most likely normal No diaphragmatic hernias seen.Normal 3 vessel cord. COLOR FLOW DOPPLER ECHOCARDIOGRAM: No turbulence, insufficiency seen across the aortic, pulmonary, mitralor tricuspid valve. Normal right -to-left shunt across foramen ovale and ductus arteriosus. PULSE AND CONTINUOUS WAVE DOPPLER: Pulse and continuous wave Doppler confirmed the above finding. M-MODE ECHOCARDIOGRAM: No arrhythmia seen. The heart rate was 152 /min with 1:1conduction. IMPRESSION: No ductus venosus was visualized No clear cut structural or functional cardiac abnormality is seen. The heart is in normal position. Visceral-atrial situs, ventricularsitus, and relationship of great arteries are normal. Patent ductus arteriosus is visualized with normal shunting. Right toleft. No pericardial effusion is seen. No pleural effusion seen. No ascites seen. No arrhythmia is seen. Limitation of echocardiography explained. FINDINGS: DESCRIPTION One fetus is present. lie in Cephalic-presentation. Interpreted and electronically signed by Michael Hartman M.D. 04/19/2025 10:02 us Michael Hartman MD ORDERABLES Final Result Performing Organization Address City/State/[facility] Co de Phone Number INTERFACE SYSTEM Refer to clinic/hospital department * BILE ACIDS FRACTIONATED AND TOTAL (04/13/2025 9:39 AM CDT) CHOLIC ACID <0.5 < OR = 1.8 umol/L [facility], DEOXYCHOLIC ACID <0.5 < OR = 2.4 umol/L [facility], CHENODEOXYCHOLIC ACID <0.5 < OR = 3.1 umol/L [facility], BILE ACIDS, TOTAL <1.5 < OR = 6.8 umol/L [facility], Comment: This test was developed and its analytical performance characteristics have been determined by [employer]. It has not been cleared or approved by the FDA. This assay has been validated pursuant to the CLIA regulations and is used for clinical purposes. Test Performed at: [facility], [address] [place], [place] Antonina Mcqueen MD,PhD,KRISSY Blood 04/13/2025 9:39 AM CDT 04/13/2025 9:40 AM CDT Tess Vazquez MD CHEMISTRY ORDERABLES Final Resul t [facility] [phone] [facility], [address] [place] [address] * HEMOGLOBIN A1C (04/13/2025 9:39 AM CDT) HEMOGLOBIN A1C 5.1 <5.7 % of total Hgb [facility] meredith Marte Comment: For the purpose of screening for the presence of diabetes: <5.7% Consistent with the absence of diabetes 5.7-6.4% Consistent with increased risk for diabetes (prediabetes) > or =6.5% Consistent with diabetes This assay result is consistent with a decreased risk of diabetes. Currently, no consensus exists regarding use of hemoglobin A1c for diagnosis of diabetes in children. According to [place] Diabetes Association (ADA) guidelines, hemoglobin A1c <7.0% represents optimal control in non- diabetic patients. Different metrics may apply to specific patient populations. Standards of Medical Care in Diabetes(ADA). ESTIMATED AVERAGE GLUCOSE (MG/DL) 100 mg/dL [facility] ESTIMATED AVERAGE GLUCOSE (MMOL/L) 5.5 mmol/L [facility] Comment: [facility]: [facility] [address] [place] [id number] Britt Schmitt Blood 04/13/2025 9:39 AM CDT 04/13/2025 9:40 AM CDT Tess Vazquez MD CHEMISTRY ORDERABLES Final Resul t [facility] [phone] [facility] [address] [place] [address] * ECHO 2D + COLOR FLOW VELOCITY (04/12/2025 1:41 PM CDT) Narrative 04/12/2025 1:41 PM CDT Order information only. Exam was auto-finalized. us Patria Boyle MD US ORDERABLES Final Result * US OB DETAIL SINGLE GEST (02/27/2025 3:25 PM CDT) Anatomical Region Laterality Modality Pelvis Ultrasound 02/27/2025 2:13 PM CDT Narrative 02/27/2025 3:31 PM CDT ST[facility] COMP ----- Pat. Name: SHEILA WINKLER Study Date: 02/27/2025 2:13pm Pat. NO: [id number] Referring MD: DONALD JAMISON MD Site: [place] [employer] Executive: Radha Riley RDMS : 2000 Age: 24 ----- INDICATION ----- Anatomy Survey LR NIPT Diabetes type I Asthma Complicating CODING ----- Diagnoses Z3A.20: Weeks of gestation O99.512: Diseases of the respiratory system complicating O24.012: Pre-existing type 1 diabetes mellitus, in O09.892: Supervision of other high risk pregnancies Z36.3: Encounter for screening for malformations Procedures 80654: Ultrasound, uterus, real time with image documentation, and maternal evaluation plus detailed anatomic examination, transabdominal approach 16069: Ultrasound, uterus, real time with image documentation HISTORY ----- OB History 1. Para 0 MATERNAL ASSESSMENT ----- Physical Exam Initial weight 61 kg, 135 lb. Initial BMI 25.51 kg/m METHOD ----- Transabdominal and transvaginal ultrasound examination ----- Cole . Number of fetuses: 1 DATING ----- Method of dating: based on stated ALEJANDRINA GA by prior assessment 20 w + 4 d ALEJANDRINA by prior assessment: 07/13/2025 Ultrasound examination on: 02/27/2025 GA by U/S based upon: AC, BPD, EFW, Femur, HC GA by U/S 20 w + 2 d ALEJANDRINA by U/S: 07/15/2025 Assigned: based on stated ALEJANDRINA, selected on 02/27/2025 Assigned GA 20 w + 4 d Assigned ALEJANDRINA: 07/13/2025 BIOMETRY ----- BPD 46.2 mm 20w 0d 25% Hadlock OFD 57.8 mm 20w 1d 36% Bree HC 165.6 mm 19w 2d 3% Hadlock Cerebellum tr 20.2 mm 20w 0d 32% Taveras Nuchal fold 5.2 mm AC 148.5 mm 20w 1d 29% Hadlock Femur 36.0 mm 21w 3d 71% Hadlock Humerus 30.8 mm 20w 1d 35% Bree HC / AC 1.12 21% Nicolaides Weight Calculation: EFW 361 g 20w 3d 43% Hadlock EFW (lb,oz) 0 lb 13 oz EFW by Hadlock ([id number]) Head / Face / Neck Biometry: Camp Advisor 5.6 mm CM 3.6 mm 9% Nicolaides Inner IOD 12.6 mm Nasal 6.5 mm bone Extremities / Bony Struc Biometry: FL / BPD 0.78 95% Hadlock FL / HC 0.22 >99% Hadlock FL / AC 0.24 95% Hadlock GENERAL EVALUATION ----- Cardiac activity present. FHR 143 bpm. movements: present. Presentation: cephalic Placenta: Placental site: anterior Umbilical cord: Cord vessels: 3 vessel cord. Insertion site: placental insertion: normal Amniotic fluid: Amount of AF: normal amount. MVP 4.5 cm ANATOMY ----- The following structures appear normal: Head / Neck Cranium. Lateral ventricles. Choroid plexus. Midline falx. Cavum septi pellucidi. Cerebellum. Cisterna magna. Thalami. Nuchal fold. Face Profile. Palate. Orbits. Heart / Thorax RVOT view. LVOT view. 3-vessel view. 6-teaqon-fryfsrc view. Situs. Aortic arch view. Ductal arch view. Superior vena cava. Inferior vena cava. High short axis view. Cardiac rhythm. Abdomen Cord insertion. Stomach. Kidneys. Bladder. Genitals. Spine Cervical spine. Thoracic spine. Lumbar spine. Sacral spine. Extremities / Arms. Right hand. Legs. Right foot. Left foot. Skeleton The following structures could not be adequately visualized: Face Lips. Nose. Heart / Thorax 4-chamber view. Diaphragm. Extremities / Left hand. Skeleton sex: female. MATERNAL STRUCTURES ----- Cervix Visualized Approach - Transvaginal: Cervical length 32.8 mm Right Ovary Normal Size 17 mm x 15 mm x 12 mm. Vol 1.6 cm Left Ovary Suboptimal GROWTH OVERVIEW ----- Exam date GA BPD (mm) HC (mm) AC (mm) FL (mm) HL (mm) EFW (g) 02/27/2025 20w 4d 46.2 25% 165.6 3% 148.5 29% 36.0 71% 30.8 35% 361 43% COMMENT ----- Patient's name and date of were verified by the circuit board inspector before the exam. NENO Diggs was present for the transvaginal ultrasound and served as a senior dot net developer. IMPRESSION ----- Viable at 20 weeks gestation complicated by type 1 diabetes The biometry is consistent with the established gestational age No structural malformations or markers of aneuploidy were identified Anatomic survey could not be completed Amniotic fluid volume is normal Anterior placenta with normal placental cord insertion appreciated; placenta is not low-lying Normal cervical length based upon transvaginal ultrasound assessment. Ultrasound cannot identify all structural malformations nor exclude a diagnosis of aneuploidy Follow-up ultrasound scheduled in 4 weeks to complete anatomic survey and to perform echo Procedure Note Artis Nicholson MD - 02/27/2025 STL COMP ----- Pat. Name:Chiki WINKLER Date:02/27/2025 2:13pm Pat. NO: [id number] MD:DONALD JAMISON MD [facility]:Radha Riley RDMS :2000Age:24 ----- INDICATION ----- Anatomy Survey LR NIPT Diabetes type I Asthma Complicating CODING ----- Diagnoses Z3A.20: Weeks of gestation O99.512: Diseases of the respiratory systemcomplicating O24.012: Pre-existing type 1 diabetes mellitus, inpregnancy O09.892: Supervision of other high riskpregnancies Z36.3: Encounter for screening formalformations Procedures 89981: Ultrasound, uterus, real time withimage documentation, and maternal evaluation plus detailed anatomic examination,transabdominal approach 42119: Ultrasound, uterus, real time withimage documentation HISTORY ----- OB History 1. Para 0 MATERNAL ASSESSMENT ----- Physical Exam Initial weight 61 kg, 135 lb. Initial BMI 25.51kg/m METHOD ----- Transabdominal and transvaginal ultrasound examination ----- Cole . Number of fetuses: 1 DATING ----- Method of dating:based on stated ALEJANDRINA GA by prior [id number] w + 4 d ALEJANDRINA by prior assessment:07/13/2025 Ultrasound examination on:02/27/2025 GA by U/S based upon:AC, BPD, EFW, Femur, HC GA by U/S20 w + 2 d ALEJANDRINA by U/S:07/15/2025 Assigned:based on stated ALEJANDRINA, selected on 02/27/2025 Assigned GA20 w + 4 d Assigned ALEJANDRINA:07/13/2025 BIOMETRY ----- BPD 46.2 mm 20w 0d25% Hadlock OFD 57.8 mm 20w 1d36% Bree HC 165.6 mm 19w 2d3% Hadlock Cerebellum tr 20.2 mm 20w 0d32% Taveras Nuchal fold 5.2 mm AC 148.5 mm 20w 1d29% Hadlock Femur 36.0 mm 21w 3d71% Hadlock Humerus 30.8 mm 20w 1d35% Bree HC / AC 1.12 21%Nicolaides Weight Calculation: EFW 361 g 20w 3d 43%Hadlock EFW (lb,oz) 0 lb 13 oz EFW by Hadlock ([id number]) Head / Face / Neck Biometry: Camp Advisor 5.6 mm CM 3.6 mm 9%Nicolaides Inner IOD 12.6 mm Nasal 6.5 mm bone Extremities / Bony Struc Biometry: FL / BPD 0.78 95%Hadlock FL / HC 0.22 >99%Hadlock FL / AC 0.24 95%Hadlock GENERAL EVALUATION ----- Cardiac activity present. FHR 143 bpm. movements: present.Presentation: cephalic Placenta: Placental site: anterior Umbilical cord: Cord vessels: 3 vessel cord. Insertion site: placentalinsertion: normal Amniotic fluid: Amount of AF: normal amount. MVP 4.5 cm ANATOMY ----- The following structures appear normal: Head / Neck Cranium. Lateral ventricles. Choroid plexus.Midline falx. Cavum septi pellucidi. Cerebellum. Cisterna magna. Thalami. Nuchal fold. Face Profile. Palate. Orbits. Heart / Thorax RVOT view. LVOT view. 3-vessel view.8-lbjcxt-gdnqbao view. Situs. Aortic arch view. Ductal arch view. Superior vena cava. Inferior vena cava. High shortaxis view. Cardiac rhythm. Abdomen Cord insertion. Stomach. Kidneys. Bladder.Genitals. Spine Cervical spine. Thoracic spine. Lumbar spine.Sacral spine. Extremities / Arms. Right hand. Legs. Right foot. Left foot. Skeleton The following structures could not be adequately visualized: Face Lips. Nose. Heart / Thorax 4-chamber view. Diaphragm. Extremities / Left hand. Skeleton sex: female. MATERNAL STRUCTURES ----- Cervix Visualized Approach - Transvaginal: Cervical length 32.8 mm Right Ovary Normal Size 17 mm x 15 mm x 12 mm. Vol 1.6 cm Left Ovary Suboptimal GROWTH OVERVIEW ----- Exam date GA BPD (mm) HC (mm) AC (mm) FL(mm) HL (mm) EFW (g) 02/27/2025 20w 4d 46.2 25% 165.6 3% 148.5 29%36.0 71% 30.8 35% 361 43% COMMENT ----- Patient's name and date of were verified by the circuit board inspector beforethe exam. NENO Diggs was present for the transvaginal ultrasound and served as achaperone. IMPRESSION ----- Viable at 20 weeks gestation complicated by type 1 diabetes The biometry is consistent with the established gestational age No structural malformations or markers of aneuploidy wereidentified Anatomic survey could not be completed Amniotic fluid volume is normal Anterior placenta with normal placental cord insertion appreciated;placenta is not low-lying Normal cervical length based upon transvaginal ultrasound assessment. Ultrasound cannot identify all structural malformations nor exclude adiagnosis of aneuploidy Follow-up ultrasound scheduled in 4 weeks to complete anatomic survey andto perform echo us Donald Jamison MD US ORDERABLES Final Result from Last 3 Months Insurance [place] OUT OF STATE [place] [id number]
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
[2025-05-15 14:45] VITALS: BP 106/63; PULSE 91; TEMP 36.3
[2025-05-15 15:00] VITALS: BP 113/67; PULSE 93
[2025-05-15 15:16] VITALS: BP 77/63; PULSE 83
[2025-05-15 15:19] LABS: Glucose Point of Care 79 mg/dl (65-105)
[2025-05-15 15:30] VITALS: BP 105/70; PULSE 89
[2025-05-15 15:32] LABS: Add Urine Microscopic? YES; Appearance Urine Clear (Clear); Bacteria Urine None Seen /hpf; Bilirubin Urine Negative (Negative); Blood Urine Negative (Negative); Color Urine Yellow (Yellow); Glucose Urine UA Negative (Negative); Ketones Urine Negative (Negative); Leukocyte Esterase Ur Trace LEU/UL (Negative); Nitrate Urine Negative (Negative); Non Pathogenic Casts 0-2; Protein Urine Negative (Negative); RBC Urine 0-2 /hpf (0-2); Specific Grav Ur 1.008 (1.001-1.035); Squamous Epithelial Cell Urine None Seen /hpf (Few); Urobilinogen Urine 0.2 mg/dL (<2.0); WBC Urine 0-5 /hpf (0-3)
[2025-05-15 15:45] VITALS: BP 111/62; PULSE 88
[2025-05-15 16:00] VITALS: BP 106/72; PULSE 86
[2025-05-15 16:06] VITALS: BMI 30.7
--- NOTE | 2025-05-15 16:06 | OBADM ---
This patient, Kera Carreon, admitted to the OB room OB Post 116 for observation. Patient/family oriented to hospital policies and general routines including ID bracelet, bed and alarms, visiting hours, pain management, procedures, bathroom and other care routines, personal items, smoking policy, room service/diet, and visiting hours. Patient/Family are encouraged to report perceived risks to care and to ask questions if they do not understand what they are told or what they should do.
--- NOTE | 2025-05-16 14:46 | P.PNOB_ITS ---
OB - Triage/Final Diagnosis Visit Information Comments/Additional reasons for admission: I have assessed the risk for this patient, Kera Carreon, and determined that she would benefit from observation care. Evaluation Laboratory results: Laboratory Tests 05/15/25 05/15/25 15:08 15:14 POC Capillary Glucose 79 Urine Color Yellow Urine Appearance Clear Urine pH 8.0 Ur Specific [place] 1.008 Urine Protein Negative Urine Glucose (UA) Negative Urine Ketones Negative Ur Blood (Man) Negative Urine Nitrate Negative Urine Bilirubin Negative Urine Urobilinogen 0.2 Leukocyte Esterase Rfl Trace H Urine RBC 0-2 Urine WBC 0-5 Ur Squamous Epith Cells None seen Urine Bacteria None seen Urine Casts 0-2 Vital signs: Vital Signs - 24 hr 05/15/25 15:00 05/15/25 15:16 05/15/25 15:30 Pulse Rate 93 83 89 Blood Pressure 113/67 77/63 L 105/70 05/15/25 15:45 05/15/25 16:00 Pulse Rate 88 86 Blood Pressure 111/62 106/72 Final Diagnosis (1) Back pain affecting : Code(s): O99.891 - Other specified diseases and conditions complicating ; M54.9 - Dorsalgia, unspecified Status: Acute
== END 2025-05-15 16:27 | disposition home or self-care (01) ==
PROVIDERS: Admitting Provider Obstetrics & Gynecology; PCP Nurse Practitioner Family; Visit Provider Obstetrics & Gynecology
DX: O99.891 Other specified diseases and conditions complicating pregnancy (principal); M54.9 Dorsalgia, unspecified; Z3A.31 31 weeks gestation of pregnancy
CPT/HCPCS: 81001; 82948; G0378; G0379

== ENCOUNTER 2025-06-26 15:38 | Inpatient (IN) | payer OTHER, BC, SELFPAY ==
[2025-06-26] VITALS (21 sets, daily range): BP systolic 83–134; BP diastolic 54–73; PULSE 63–93; TEMP 36.4–36.6; O2SAT 97–100; BMI 34.1
--- OUTSIDE RECORDS SUMMARY | 2025-06-26 15:45 | XMS_ITS | Encounter Summary ---
Author Organization [facility] Address [address] [place] [address] Care Team Providers Care Hide Grader Name Role Phone Unavailable Primary Care Provider Unavailabl e Encounter Details Date Type Department Care Team (Late st Contact Info) Description 06/14/2025 Results Follow-Up [facility] Maternal and Medicine - Medical Vincent B [address] [place] [address] Ling Blackman MD [address] [facility] [place] [address] COMPREHENSIVE METABOLIC PANEL, PROTEIN/CREATININE RATIO, URINE, CBC WITH DIFFERENTIAL, Additional followed-up results: 2 Social History Tobacco Use Types Packs/Day Years Used Date Smoking Tobacco: Never Smokeless Tobacco: Never Alcohol Use Standard Drinks/Week Comments Not Currently 0 (1 standard drink = 0.6 oz pur e alcohol) Estimated Date of Delivery Comme nts Yes 07/13/2025 Date entered bianca or to episode creation Sex and Gender Information Value Date Recorded Sex Assigned at Not on file 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 [address] [place] [id number] 07/06/2025 9:00 AM CDT Appointment [facility] Maternal and Ground Floor [facility] [address] [facility] [place] [address] Latonia Collins MD [address] [facility] [address] [place] [id number] documented as of this encounter Visit Diagnoses Not on filedocumented in this encounter
--- OUTSIDE RECORDS SUMMARY | 2025-06-26 15:45 | XMS_ITS | Clinical Summary ---
Author Organization [facility] Address [address] [place] [address] Phone Care Team Providers Care Credit Review Manager Name Role Phone Unavailable Primary Care Provider Unavailabl e Allergies Active Allergy Reactions Criticality Noted Date Comments Pollen Extracts Shortness of Breath/Wheezing High Medications Peak Flow Meter Device by [facility]Non-Drug; Combo Route) route. Active albuterol (PROVENTIL,NANO HOLLI) 2.5 mg /3 mL (0.083 %) Solution for Nebulization Take 2.5 mg by inhalation every 4 hours as needed for Wheezing. Active inhalational spacing device (Nav Aerosol [place] Enhancer) Spacer by See Admin Instructions route see administration instructions. Active albuterol sulfate HFA 90 mcg/actuation aerosol inhaler Take 2 Puffs by inhalation every 6 hours as needed for Shortness of Breath. Active fexofenadine (YUIMKO) 60 mg tablet Take 180 mg by mouth daily. Active fluticasone/salvador nterol (BREO ELLIPTA INHALATION) Take by inhalation daily. Active ipratropium-albu teroL (Combivent Respimat) 20-100 mcg/actuation Mist Take by inhalation every 4 hours as needed. Active Blood-Glucose Sensor (Dexcom G7 Sensor) Device by [facility]Non-Drug; Combo Route) route. Active fluticasone propionate (FLONASE) 50 mcg/spray [place], Suspension nasal inhaler Administer 2 Sprays in each nostril daily. Active MAGNESIUM OXIDE ORAL Take by mouth. Activ e Blood-Glucose Meter (Blood Glucose Monitoring) Kit by [employer].(Non-Drug; Combo Route) route. Active vits15/iron/foli c/dss ( VIT 65-EQFI-WKZRS-DS S ORAL) Take by mouth. Activ e [...] pump as directed 20 mL 2 03/02/20 25 Active famotidine (PEPCID) 20 mg tablet Take 20 mg by mouth 2 times daily. Active ferrous sulfate 325 mg (65 mg iron) tablet Take 1 Tablet (325 mg) by mouth daily. 30 Tablet 3 05/10/20 25 Active Active Problems Problem Noted Date Diagnosed Date Pre-existing type 1 diabetes mellitus in in second trimester 01/18/2025 Asthma during in second trimester 03/2025 14 weeks gestation of 01/18/2025 Estimated Date of Delivery Comme nts Yes 07/13/2025 Date entered bianca or to episode creation Encounters Date Type Department Care Team Description 06/22/2025 9:35 AM CDT - 06/22/2025 11:59 PM T Hospital Encounter [facility] Maternal and Ground Floor [address] [place] [address] [place] [address] Marimar Jenkins MD Arrived Discharge Disposition: Home or Self Care 06/22/2025 9:35 AM CDT - 06/22/2025 11:59 PM T Hospital Encounter [facility] Maternal and Ground Floor [address] [place] [address] [place] [address] Latonia Collins MD Arrived Discharge Disposition: Home or Self Care 06/19/2025 Orders Only [facility] Maternal and Medicine - Medical [facility] [address] [facility] [address] [place] [address] Mickie Blackman MD Asthma during in second trimester; Pre-existing type 1 diabetes mellitus in in second trimester; Supervision of high risk in third trimester; 35 weeks gestation of 06/15/2025 9:19 AM CDT - 06/15/2025 11:59 PM CDT Hospital Encounter [facility] Invasive Cardiology [address] [place] [address] Mickie Blackman MD Discharge Disposition: Home or Self Care 06/15/2025 8:38 AM CDT - 06/15/2025 11:59 PM CDT Hospital Encounter [facility] Maternal and Ground Floor [address] [place] [address] [place] [address] Marlee Clemens MD Discharge Disposition: Home or Self Care 06/14/2025 Results Follow-Up [facility] Maternal and Medicine - Medical Warden B [address] [place] [address] Mickie Blackman MD COMPREHENSIVE METABOLIC PANEL, PROTEIN/CREATININE RATIO, URINE, CBC WITH DIFFERENTIAL, Additional followed-up results: 2 06/08/2025 12:12 PM CDT - 06/08/2025 11:59 PM CDT Hospital Encounter [facility] Invasive Cardiology [address] [place] [address] Mickie Blackman MD Discharge Disposition: Home or Self Care 06/08/2025 11:00 AM CDT visit [facility] Maternal and Medicine - Medical Warden B [address] [place] [address] Mickie Blackman MD Asthma during in second trimester (Primary Dx); Pre-existing type 1 diabetes mellitus in in second trimester; Supervision of high risk in third trimester; 35 weeks gestation of 06/08/2025 8:45 AM CDT - 06/08/2025 11:59 PM CDT Hospital Encounter [facility] Maternal and Ground Floor [address] [place] [address] [place] [phone] Marlee Clemens MD Discharge Disposition: Home or Self Care 06/08/2025 Chart Note [facility] Maternal and Medicine - [facility] B [address] [facility] [place] [address] Mickie Blackman MD Diabetes 06/08/2025 Chart Note [facility] Maternal and Medicine - [facility] B [address] [facility] [place] [address] Mickie Blackman MD Diabetes 06/07/2025 Orders Only Initial Department [address] [place] [address] Dr WHITE: [place] [address] Provider, Historical 06/05/2025 8:55 AM CDT - 06/05/2025 11:59 PM CDT Hospital Encounter [facility] Maternal and Ground Floor S [facility] [address] [place] [address] Latonia Collins MD Discharge Disposition: Home or Self Care 06/05/2025 8:54 AM CDT - 06/05/2025 11:59 PM CDT Hospital Encounter [facility] Maternal and Ground Floor S [facility] [address] [place] [address] Marlee Clemens MD Discharge Disposition: Home or Self Care 06/05/2025 8:00 AM CDT Office Visit [facility] [address] [facility] [address] [address] Michael Hartman MD abnormality affecting management of mother, single or unspecified fetus (Primary Dx) 06/05/2025 7:52 AM CDT - 06/05/2025 11:59 PM CDT Hospital Encounter [facility] Pediatric Diag Cardio [facility] A [address] [place] [address] Michael Hartman MD Discharge Disposition: Home or Self Care 06/01/2025 8:55 AM CDT - 06/01/2025 11:59 PM CDT Hospital Encounter [facility] Maternal and Ground Floor S [facility] [address] [place] [address] Marlee Clemens MD Discharge Disposition: Home or Self Care 05/31/2025 External Device Data STL ABSTRACTION Provider, Abstract 05/31/2025 External Device Data STL ABSTRACTION Provider, Abstract 05/31/2025 Chart Note [facility] Maternal Medicine [address] [address] [facility] [address] [place] [address] Mickie Blackman MD Diabetes 05/31/2025 External Device Data STL ABSTRACTION Provider, Abstract 05/31/2025 External Device Data STL ABSTRACTION Provider, Abstract 05/30/2025 External Device Data STL ABSTRACTION Provider, Abstract 05/25/2025 8:45 AM CDT - 05/25/2025 11:59 PM CDT Hospital Encounter [facility] Maternal and Ground Floor S [facility] [address] [place] [address] Marlee Clemens MD Discharge Disposition: Home or Self Care 05/25/2025 Chart Note [facility] Maternal Medicine [address] [place] [address] Tess Vazquez MD Diabetes 05/16/2025 External Device Data STL ABSTRACTION Provider, Abstract 05/10/2025 2:30 PM CDT visit [facility] Maternal and Medicine - Medical Warden B [address] [facility] [address] [place] [address] Mickie Blackman MD Asthma during in second trimester (Primary Dx); Pre-existing type 1 diabetes mellitus in in second trimester; Supervision of high risk in third trimester; 30 weeks gestation of 05/10/2025 Chart Note [facility] Maternal and Medicine - Medical Warden B [address] [facility] [address] [place] [address] Mickie Blackman MD Diabetes 05/09/2025 External Device Data STL ABSTRACTION Provider, Abstract 05/09/2025 External Device Data STL ABSTRACTION Provider, Abstract 05/09/2025 External Device Data STL ABSTRACTION Provider, Abstract 05/08/2025 1:15 PM CDT - 05/08/2025 11:59 PM CDT Hospital Encounter [facility] Maternal and Ground Floor S [facility] [address] [place] [address] Marlee Clemens MD Discharge Disposition: Home or Self Care 05/04/2025 2:39 PM CDT - 05/04/2025 5:04 PM CDT Emergency [facility] Obstetrics Emergency Department [address] [place] [address] Delicia Dick MD Whalen, Thomas R, MD Right upper quadrant abdominal pain (Primary Dx) Discharge Disposition: Home or Self Care 05/04/2025 Travel 05/02/2025 External Device Data STL ABSTRACTION Provider, Abstract 05/02/2025 Chart Note [facility] Maternal and Medicine - Medical Warden B [address] [facility] [address] [place] [address] Sandra Gonzalez MD Diabetes 04/19/2025 Chart Note [facility] Maternal and Medicine - Medical Warden B [address] [facility] [place] [address] Mickie Blackman MD Diabetes 04/17/2025 8:00 AM CDT Initial consult [facility] [address] [facility] [address] [address] Michael Hartman MD abnormality affecting management of mother, single or unspecified fetus (Primary Dx) 04/17/2025 7:32 AM CDT - 04/17/2025 11:59 PM CDT Hospital Encounter [facility] Pediatric Diag Cardio Medical Warden A [address] [place] [address] Michael Hartman MD Discharge Disposition: Home or Self Care 04/17/2025 Results Follow-Up [facility] Maternal and Medicine - Medical Warden B [address] [facility] [place] [address] Tess Vazqeuz MD COMPREHENSIVE METABOLIC PANEL, HEMOGLOBIN A1C, BILE ACIDS FRACTIONATED AND TOTAL 04/12/2025 3:00 PM CDT visit [facility] Maternal and Medicine - Medical Warden B [address] [place] [address] Tess Vazquez MD Pre-existing type 1 diabetes mellitus in in second trimester (Primary Dx); 14 weeks gestation of ; Itching; Asthma during 04/12/2025 12:41 PM CDT - 04/12/2025 11:59 PM CDT Hospital Encounter [facility] Maternal and Ground Floor [address] [place] [phone] Patria Boyle MD Discharge Disposition: Home or Self Care 04/12/2025 12:41 PM CDT - 04/12/2025 11:59 PM CDT Hospital Encounter [facility] Maternal and Ground Floor [address] [place] [phone] Patria Boyle MD Discharge Disposition: Home or Self Care 04/12/2025 Orders Only [facility] Maternal and Ground Floor [address] [place] [phone] Marlee Clemens MD Abnormal ultrasonic finding on screening of mother (Primary Dx) 04/12/2025 Chart Note [facility] Maternal and Medicine - Medical Warden B [address] [facility] [address] [place] [address] Tess Vazquez MD Diabetes 04/07/2025 Chart Note [facility] Maternal and Medicine - Medical Warden B [address] [place] [address] Tess Vazquez MD Diabetes 04/06/2025 External Device Data STL ABSTRACTION Provider, Abstract 04/06/2025 External Device Data STL ABSTRACTION Provider, Abstract 04/05/2025 External Device Data STL ABSTRACTION Provider, Abstract 04/04/2025 External Device Data STL ABSTRACTION Provider, Abstract 03/31/2025 Chart Note [facility] Maternal and Medicine - Medical Warden B [address] [facility] [place] [address] Karely Renae NP Diabetes from [...] on file 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 Gender Identity Not on file Sexual Orientation Not on file Last Filed Vital Signs Vital Sign Reading Time Taken Comments Blood Pressure 116/60 06/08/2025 10:48 AM CDT Pulse 103 06/08/2025 10:48 AM CDT Temperature 36.9 C (98.5 F) 05/04/2025 2:37 PM CDT Respiratory Rate 18 06/05/2025 8:09 AM CDT Oxygen Saturation 99% 06/08/2025 10:48 AM CDT Inhaled Oxygen Concentration - - Weight 78 kg (172 lb) 06/08/2025 10:48 AM CDT Height 154.9 cm (5' 1) 05/04/2025 2:37 PM CDT Body Mass Index 32.5 05/04/2025 2:37 PM CDT Plan of Treatment Upcoming Encounters Date Type Department Care Team (Late st Contact Info) Description 06/29/2025 9:00 AM CDT Appointment [facility] Maternal and Ground Floor [address] [place] [address] Latonia Collins MD [address] [facility] [address] [place] [address] 07/06/2025 9:00 AM CDT Appointment [facility] Maternal and Ground Floor [address] [place] [address] Latonia Collins MD [address] [facility] [address] [place] [address] Health Maintenance Due Date Last Done Comments HPV VACCINES (1 - 3-dose series) 2015 DIABETES MICROALBUMIN ANNUAL SCREEN 2018 LDL CHOLESTEROL ANNUAL 2018 DTAP/TDAP/TD VACCINES (1 - Tdap) 2019 HEPATITIS B VACCINES (1 of 3 - 19+ 3-dose series) 2019 CERVICAL CANCER SCREENING 2021 HPV/Cotest (21-29) 2021 PAP SMEAR 2021 Preventative Visit- Commercial 11/16/2024 INFLUENZA VACCINE (#1) 2025 DIABETES HBA1C Q 6 MONTHS 10/14/2025 04/13/2025, DIABETES ANNUAL FOOT EXAM 11/17/2025 11/17/2024 DIABETES ANNUAL RETINAL EXAM 11/17/2025 11/17/2024 RSV VACCINE (60+ or ) (No Doses Required) Completed Procedures Procedure Name Priority Date/Time Associated Diagnosis Comments US OB FOLLOW UP PER FETUS Routine 06/22/2025 11:15 AM CDT Abnormal ultrasonic finding on screening of mother US MONITORING NST Routine 06/22/2025 10:26 AM CDT Type 1 diabetes mellitus complicating , antepartum Abnormal finding on ultrasound CBC WITH DIFFERENTIAL Routine 06/19/2025 2:23 PM CDT Asthma during in second trimester Pre-existing type 1 diabetes mellitus in in second trimester Supervision of high risk in third trimester 35 weeks gestation of PROTEIN , RANDOM URINE Routine 2:23 PM CDT Asthma during in second trimester Pre-existing type 1 diabetes mellitus in in second trimester Supervision of high risk in third trimester 35 weeks gestation of COMPREHENSIVE METABOLIC PANEL Routine 06/19/2025 2:23 PM CDT Asthma during in second trimester Pre-existing type 1 diabetes mellitus in in second trimester Supervision of high risk in third trimester 35 weeks gestation of HOLTER MONITOR Stat 06/17/2025 9:35 AM CDT Asthma during in second trimester Pre-existing type 1 diabetes mellitus in in second trimester Supervision of high risk in third trimester 35 weeks gestation of US OB LIMITED + NST Routine 06/15/2025 1 0:00 AM CDT Abnormal ultrasonic finding on screening of mother BILE ACIDS FRACTIONATED AND TOTAL Routine 06/08/2025 11:52 AM CDT Asthma during in second trimester Pre-existing type 1 diabetes mellitus in in second trimester Supervision of high risk in third trimester 35 weeks gestation of CBC WITH DIFFERENTIAL Routine 06/08/2025 11:52 AM CDT Asthma during in second trimester Pre-existing type 1 diabetes mellitus in in second trimester Supervision of high risk in third trimester 35 weeks gestation of PROTEIN , RANDOM URINE Routine 5 11:52 AM CDT Asthma during in second trimester Pre-existing type 1 diabetes mellitus in in second trimester Supervision of high risk in third trimester 35 weeks gestation of COMPREHENSIVE METABOLIC PANEL Routine 06/08/2025 11:52 AM CDT Asthma during in second trimester Pre-existing type 1 diabetes mellitus in in second trimester Supervision of high risk in third trimester 35 weeks gestation of US OB LIMITED + NST Routine 06/08/2025 9 :56 AM CDT Abnormal ultrasonic finding on screening of mother PROTEIN , RANDOM URINE Routine 5 8:48 AM CDT US MONITORING NST Routine 06/05/2025 10:37 AM CDT Type 1 diabetes mellitus complicating , antepartum Abnormal finding on ultrasound US OB FOLLOW UP PER FETUS Routine 06/05/2025 9:35 AM CDT Type 1 diabetes mellitus complicating , antepartum Abnormal finding on ultrasound ECHOCARDIOGRAM 2D FU W DOPPLER Routine 06/05/2025 9:09 AM CDT abnormality affecting management of mother, single or unspecified fetus US OB LIMITED + NST Routine 06/01/2025 1 0:01 AM CDT Abnormal ultrasonic finding on screening of mother PROTEIN , RANDOM URINE Routine 9:49 AM CDT CBC WITH DIFFERENTIAL Routine 05/26/2025 9:49 AM CDT Asthma during in second trimester Pre-existing type 1 diabetes mellitus in in second trimester Supervision of high risk in third trimester 30 weeks gestation of COMPREHENSIVE METABOLIC PANEL Routine 05/26/2025 9:49 AM CDT Asthma during in second trimester Pre-existing type 1 diabetes mellitus in in second trimester Supervision of high risk in third trimester 30 weeks gestation of US OB LIMITED + NST Routine 05/25/2025 9 :55 AM CDT Abnormal ultrasonic finding on screening of mother US OB FOLLOW UP PER FETUS Routine [...] type 1 (CMS/HCC) 14 weeks gestation of from Last 3 Months Results * US OB FOLLOW UP PER FETUS (06/22/2025 11:15 AM CDT) Only the most recent of4 resultswithin the time period is included. Anatomical Region Laterality Modality Pelvis Ultrasound 06/22/2025 10:3 8 AM CDT Narrative 06/22/2025 3:41 PM CDT STL FOLLOW UP ----- Pat. Name: SHEILA WINKLER Study Date: 06/22/2025 10:38am Pat. NO: [id number] Referring MD: DONALD YOON MD Site: [facility] Ordnance Equipment Worker: Aretha Oswald RDMS, RVT : 2000 Age: 24 ----- INDICATION ----- Diabetes type I Asthma Complicating Absent Ductus Venosus CODING ----- Diagnoses Z3A.37: Weeks of gestation O99.513: Diseases of the respiratory system complicating O24.013: Pre-existing type 1 diabetes mellitus, in O35.8XX0: Maternal care for other (suspected) abnormality and damage, not applicable or unspecified Procedures 49372: Ultrasound, uterus, real time with image documentation, follow up, transabdominal approach per fetus HISTORY ----- OB History 1. Para 0 MATERNAL ASSESSMENT ----- Physical Exam Initial weight 61 kg, 135 lb. Initial BMI 25.51 kg/m METHOD ----- Transabdominal ultrasound examination ----- Cole . Number of fetuses: 1 DATING ----- GA by prior assessment 37 w + 0 d ALEJANDRINA by prior assessment: 07/13/2025 Ultrasound examination on: 06/22/2025 GA by U/S based upon: AC, BPD, EFW, Femur, HC GA by U/S 36 w + 2 d ALEJANDRINA by U/S: 07/18/2025 Method of dating: Restore dating from previous exam Assigned: based on stated ALEJANDRINA, selected on 02/27/2025 Assigned GA 37 w + 0 d Assigned ALEJANDRINA: 07/13/2025 BIOMETRY ----- BPD 88.8 mm 35w 6d 34% Hadlock OFD 110.0 mm 36w 4d 41% Bree HC 316.5 mm 35w 4d 5% Hadlock AC 332.4 mm 37w 1d 68% Hadlock Femur 70.6 mm 36w 1d 28% Hadlock HC / AC 0.95 16% Nicolaides Weight Calculation: EFW 2,980 g 36w 5d 45% Hadlock EFW (lb,oz) 6 lb 9 oz EFW by Hadlock ([id number]) Extremities / Bony Struc Biometry: FL / BPD 0.80 FL / HC 0.22 FL / AC 0.21 GENERAL EVALUATION ----- Cardiac activity present. FHR 159 bpm. movements: present. Presentation: cephalic Placenta: Placental site: anterior Umbilical cord: Cord vessels: 3 vessel cord. Insertion site: placental insertion: normal Amniotic fluid: Amount of AF: normal amount. MVP 4.1 cm. TREVOR 11.0 cm. Q1 0.0 cm, Q2 3.1 cm, Q3 4.1 cm, Q4 3.8 cm ANATOMY ----- The following structures appear normal: Head / Neck Cranium. Lateral ventricles. Choroid plexus. Midline falx. Cavum septi pellucidi. Cerebellum. Cisterna magna. Heart / Thorax 4-chamber view. RVOT view. [...] 34% 271.2 65% 62.0 78% 1,793 71% 06/05/2025 34w 4d 87.4 71% 318.2 46% 301.9 43% 64.4 12% 2,368 34% 06/22/2025 37w 0d 88.8 34% 316.5 5% 332.4 68% 70.6 28% 2,980 45% COMMENT ----- Patient's name and date of were verified by the host hostess prior to the exam IMPRESSION ----- -Single living fetus with a gestational age of 37w 0d based on the reported dates. -cephalic presentation. -The EFW is 2980 g which is at the 45%. The abdominal circumference is at the 68%. -The amniotic fluid is normal for gestational age. (TREVOR of 11 cm, MVP of 4.1 cm) -The placenta is anterior Fetus is followed by care team and pediatric cardiology for an absent ductus venosus. testing twice weekly. Notify pediatricians of findings so appropriate follow up may occur. Thank you for allowing us to participate in the care of this patient. ADDENDUM ----- RETRIGGER Procedure Note Tess Vazquez MD - 06/22/2025 STL FOLLOW UP ----- Pat. Name:DELANEY WINKLERjeremy Date:06/22/2025 10:38am Pat. NO: [id number] MD:DONALD YOON MD [facility]Aretha Oswald RDMS, RVT :2000Age:24 ----- INDICATION ----- Diabetes type I Asthma Complicating Absent Ductus Venosus CODING ----- Diagnoses Z3A.37: Weeks of gestation O99.513: Diseases of the respiratory systemcomplicating O24.013: Pre-existing type 1 diabetes mellitus, inpregnancy O35.8XX0: Maternal care for other (suspected) abnormality and damage, not applicable or unspecified Procedures 07329: Ultrasound, uterus, real time withimage documentation, follow up, transabdominal approach per fetus HISTORY ----- OB History 1. Para 0 MATERNAL ASSESSMENT ----- Physical Exam Initial weight 61 kg, 135 lb. Initial BMI 25.51kg/m METHOD ----- Transabdominal ultrasound examination ----- Cole . Number of fetuses: 1 DATING ----- GA by prior [id number] w + 0 d ALEJANDRINA by prior assessment:07/13/2025 Ultrasound examination on:06/22/2025 GA by U/S based upon:AC, BPD, EFW, Femur, HC GA by U/S36 w + 2 d ALEJANDRINA by U/S:07/18/2025 Method of dating:Restore dating from previous exam Assigned:based on stated ALEJANDRINA, selected on 02/27/2025 Assigned GA37 w + 0 d Assigned ALEJANDRINA:07/13/2025 BIOMETRY ----- BPD 88.8 mm 35w 6d 34%Hadlock OFD 110.0 mm 36w 4d 41%Bree HC 316.5 mm 35w 4d 5%Hadlock AC 332.4 mm 37w 1d 68%Hadlock Femur 70.6 mm 36w 1d 28%Hadlock HC / AC 0.95 16%Nicolaides Weight Calculation: EFW 2,980 g 36w 5d45% Hadlock EFW (lb,oz) 6 lb 9 oz EFW by Hadlock ([id number]) Extremities / Bony Struc Biometry: FL / BPD 0.80 FL / HC 0.22 FL / AC 0.21 GENERAL EVALUATION ----- Cardiac activity present. FHR 159 bpm. movements: present.Presentation: cephalic Placenta: Placental site: anterior Umbilical cord: Cord vessels: 3 vessel cord. Insertion site: placentalinsertion: normal Amniotic fluid: Amount of AF: normal amount. MVP 4.1 cm. TREVOR 11.0 cm. Q10.0 cm, Q2 3.1 cm, Q3 4.1 cm, Q4 3.8 cm ANATOMY ----- The following structures appear normal: Head / Neck Cranium. Lateral ventricles. Choroid plexus.Midline falx. Cavum septi pellucidi. Cerebellum. Cisterna magna. Heart / Thorax 4-chamber view. RVOT view. [...] 285.3 34% 271.2 65%62.0 78% 1,793 71% 06/05/2025 34w 4d 87.4 71% 318.2 46% 301.9 43%64.4 12% 2,368 34% 06/22/2025 37w 0d 88.8 34% 316.5 5% 332.4 68%70.6 28% 2,980 45% COMMENT ----- Patient's name and date of were verified by the host hostess prior tothe exam IMPRESSION ----- -Single living fetus with a gestational age of 37w 0d based on thereported dates. -cephalic presentation. -The EFW is 2980 g which is at the 45%. The abdominal circumference is atthe 68%. -The amniotic fluid is normal for gestational age. (TREVOR of 11 cm, MVP of4.1 cm) -The placenta is anterior Fetus is followed by care team and pediatric cardiology for anabsent ductus venosus. testing twice weekly. Notify pediatricians of findings so appropriate followup may occur. Thank you for allowing us to participate in the care of this patient. ADDENDUM ----- RETRIGGER us Marimar Jenkins MD US ORDERABLES Edited Result - Final * US MONITORING NST (06/22/2025 10:26 AM CDT) Only the most recent of2 resultswithin the time period is included. Anatomical Region Laterality Modality Ultrasound 06/22/2025 10:1 2 AM CDT Narrative 06/22/2025 10:15 AM CDT [facility] NST ----- Pat. Name: SHEILA WINKLER Study Date: 06/22/2025 10:12am Pat. NO: [id number] Referring MD: DONALD YOON MD Site: [facility] Ordnance Equipment Worker: : 2000 Age: 24 ----- INDICATION ----- Diabetes type I Asthma Complicating Absent Ductus Venosus CODING ----- Diagnoses Z3A.37: Weeks of gestation O99.513: Diseases of the respiratory system complicating O24.013: Pre-existing type 1 diabetes mellitus, in O35.8XX0: Maternal care for other (suspected) abnormality and damage, not applicable or unspecified Procedures 47030: NST/ monitoring HISTORY ----- OB History 1. Para 0 MATERNAL ASSESSMENT ----- Physical Exam Initial weight 61 kg, 135 lb. Initial BMI 25.51 kg/m . Blood pressure 126/78 mmHg. Heart rate 97 bpm METHOD ----- EFM ----- Cole . Number of fetuses: 1 DATING ----- GA by prior assessment 37 w + 0 d ALEJANDRINA by prior assessment: 07/13/2025 Method of dating: Restore dating from previous exam Assigned: based on stated ALEJANDRINA, selected on 02/27/2025 Assigned GA 37 w + 0 d Assigned ALEJANDRINA: 07/13/2025 NON STRESS TEST ----- NST interpretation: reactive. Test duration 27 min. Baseline FHR 130 bpm. Baseline variability: moderate. Accelerations: Present. Decelerations: Not present. Uterine activity: absent COMMENT ----- Nursing notes: Patient reports positive movement with no bleeding, leaking or tremayne. FBS- 106. Scheduled twice weekly. IMPRESSION ----- Reactive NST. Procedure Note Marimar Jenkins MD - 06/22/2025 [facility] NST ----- Pat. Name:Chiki WINKLER Date:06/22/2025 10:12am Pat. NO: [id number] :DONALD YOON MD [facility]2000Age:24 ----- INDICATION ----- Diabetes type I Asthma Complicating Absent Ductus Venosus CODING ----- Diagnoses Z3A.37: Weeks of gestation O99.513: Diseases of the respiratory systemcomplicating O24.013: Pre-existing type 1 diabetes mellitus, inpregnancy O35.8XX0: Maternal care for other (suspected) abnormality and damage, not applicable or unspecified Procedures 69390: NST/ monitoring HISTORY ----- OB History 1. Para 0 MATERNAL ASSESSMENT ----- Physical Exam Initial weight 61 kg, 135 lb. Initial BMI 25.51kg/m . Blood pressure 126/78 mmHg. Heart rate 97 bpm METHOD ----- EFM ----- Cole . Number of fetuses: 1 DATING ----- GA by prior [id number] w + 0 d ALEJANDRINA by prior assessment:07/13/2025 Method of dating:Restore dating from previous exam Assigned:based on stated ALEJANDRINA, selected on 02/27/2025 Assigned GA37 w + 0 d Assigned ALEJANDRINA:07/13/2025 NON STRESS TEST ----- NST interpretation: reactive. Test duration 27 min. Baseline FHR 130 bpm.Baseline variability: moderate. Accelerations: Present. Decelerations: Not present. Uterine activity: absent COMMENT ----- Nursing notes: Patient reports positive movement with no bleeding,leaking or tremayne. FBS- 106. Scheduled twice weekly. IMPRESSION ----- Reactive NST. us Latonia Collins MD ORDERABLES Final Resul t * (ABNORMAL) CBC WITH DIFFERENTIAL (06/19/2025 2:23 PM CDT) Only the most recent of4 resultswithin the time period is included. WBC 9.2 3.8 - 10.8 Thousand/u L [facility] RBC 3.58(L) 3.80 - 5.10 Million/uL [facility] HEMOGLOBIN 11.0(L) 11.7 - 15.5 g/dL [facility] HEMATOCRIT 34.4(L) 35.0 - 45.0 % [facility] MCV 96.1 80.0 - 100.0 fL [facility] MCH 30.7 27.0 - 33.0 pg [facility] MCHC 32.0 32.0 - 36.0 g/dL [facility] Comment: For adults, a slight decrease in the calculated MCHC value (in the range of 30 to 32 g/dL) is most likely not clinically significant; however, it should be interpreted with caution in correlation with other red cell parameters and the patient's clinical condition. RDW 14.9 11.0 - 15.0 % [facility] PLATELETS 137(L) 140 - 400 Thousand/u L [facility] MPV 11.4 7.5 - 12.5 fL [facility] NEUTROPHIL ABSOLUTE 7,296 1,500 - 7,800 cells/uL [facility] LYMPHOCYTE ABSOLUTE 1,251 850 - 3,900 cells/uL [facility] MONOCYTE ABSOLUTE 497 200 - 950 cells/uL [facility] EOSINOPHIL ABSOLUTE 147 15 - 500 cells/uL [facility] BASOPHILS ABSOLUTE 9 0 - 200 cells/uL [facility] NEUTROPHIL 79.3 % [facility] LYMPHOCYTES 13.6 % [facility] MONOCYTE 5.4 % [facility] EOSINOPHILS 1.6 % [facility] BASOPHILS 0.1 % [facility] Comment: Test Performed at: [facility] [address] [place] [address] Britt Schmitt MD Blood 06/19/2025 2:23 PM CDT 06/19/2025 2:24 PM CDT us Mickie Blackman MD HEMATOLOGY ORDERABLES Final Result Performing Organization Address City/[facility]/ZIP Co de Phone Number [facility] [phone] [facility] [address] [place] [phone] * PROTEIN/CREATININE RATIO, URINE (06/19/2025 2:23 PM CDT) Only the most recent of5 resultswithin the time period is included. CREATININE, URINE 133 20 - 275 mg/dL [facility] PROTEIN/CREATIN INE RATIO, URINE 150 24 - 184 mg/g creat [facility] PROTEIN/CREATIN INE RATIO, URINE 0.150 0.024 - 0.184 mg/mg creat [facility] PROTEIN TOTAL, URINE 20 5 - 24 mg/dL [facility] Comment: Test Performed at: [facility] [address] [facility] [place] [address] Britt Schmitt MD Urine URINE SPECIMEN OBTAINED BY CLEAN CATCH PROCEDURE / Unknown 06/19/2025 2:23 PM CDT 06/19/2025 2:24 PM CDT us Mickie Blackman MD URINE ORDERABLES Lexy l Result [facility] [phone] [facility] [address] [place] [address] * (ABNORMAL) COMPREHENSIVE METABOLIC PANEL (06/19/2025 2:23 PM CDT) Only the most recent of5 resultswithin the time period is included. GLUCOSE 163(H) 65 - 99 mg/dL [facility] Comment: Fasting reference interval For someone without known diabetes, a glucose value >125 mg/dL indicates that they may have diabetes and this should be confirmed with a follow-up test. BUN 5(L) 7 - 25 mg/dL [facility] CREATININE 0.57 0.50 - 0.96 mg/dL [facility] GFR 130 > OR = 60 mL/min/1.7 3m2 [facility] BUN/CREAT RATIO 9 6 - 22 (calc) [facility] SODIUM 136 135 - 146 mmol/L [facility] POTASSIUM 3.7 3.5 - 5.3 mmol/L [facility] CHLORIDE 105 98 - 110 mmol/L [facility] CO2 22 20 - 32 mmol/L [facility] CALCIUM 8.7 8.6 - 10.2 mg/dL [facility] TOTAL PROTEIN 5.6(L) 6.1 - 8.1 g/dL [facility] ALBUMIN 3.2(L) 3.6 - 5.1 g/dL [facility] GLOBULIN 2.4 1.9 - 3.7 g/dL (calc) [facility] ALBUMIN/GLOBULIN RATIO 1.3 1.0 - 2.5 (calc) [facility] BILIRUBIN TOTAL 0.4 0.2 - 1.2 mg/dL [facility] ALKALINE PHOSPHATASE 112 31 - 125 U/L [facility] AST 16 10 - 30 U/L [facility] ALT 9 6 - 29 U/L [facility] Comment: Test Performed at: [facility] [address] [facility] [place] [address] Britt Schmitt MD Blood 06/19/2025 2:23 PM CDT 06/19/2025 2:24 PM CDT Mickie Blackman MD CHEMISTRY ORDERABLES Final Result [facility] [phone] [facility] [address] [place] [address] * HOLTER MONITOR (06/17/2025 9:35 AM CDT) 06/17/2025 9:35 AM CDT Narrative INTERFACE SYSTEM - 06/19/2025 1:59 PM CDT [place] [address] [place] [address] Test Date: 2025-06-17 Pat Name: SHEILA WINKLER Department: Room: Gender: Female Jacquard Loom Heddles Tier: : 2000 Requested By: MICKIE LEDBETTER Order Number: [id number] Reading MD: Mike Lau Interpretive Statements Indication: Other specified conduction disorder Patient monitored for 2d 1h, analyzable time was 2d 1h starting on 06/08/2025 12:23 pm. Primary rhythm was Sinus Rhythm. Average heart rate was 93 bpm, Minimum heart rate was 66 bpm on Day :32:06 am, Max heart rate was 162 bpm on Day :23:04 am SVE(s): [place] was less than 0.01 %, 15 total SVE(s) PVC(s): [place] was less than 0.01 %, 1 total PVC(s), 1 disparate morphologies Patient recorded 6 event(s) during the monitoring period, for chest pain/SOB/fluttering which correlated with sinus rhythm. No AF/AFL, SVT, pause, AV block or VT was noted. Electronically Signed On 06-19-2025 13:59:00 CDT by Mike Lau Procedure Note Mike Lau MD - 06/19/2025 [facility] [address] [place] [address] Test Date: 2025-06-17 Pat Name: SHEILA WINKLER Department: Room: Gender: Female Jacquard Loom Heddles Tier: : 2000 Requested By: MICKIE SHAH Order Number: [id number] Emery MD: Mike Lau Interpretive Statements Indication: Other specified conduction disorder Patient monitored for 2d 1h, analyzable time was 2d 1h starting on06/08/2025 12:23 pm. Primary rhythm was Sinus Rhythm. Average heart rate was 93 bpm, Minimumheart rate was 66 bpm on Day :32:06 am, Max heart rate was 162 bpm on :23:04 am SVE(s): [place] was less than 0.01 %, 15 total SVE(s) PVC(s): [place] was less than 0.01 %, 1 total PVC(s), 1 disparatemorphologies Patient recorded 6 event(s) during the monitoring period, for chest pain/SOB/fluttering which correlated with sinus rhythm. No AF/AFL, SVT, pause, AV block or VT was noted. Electronically Signed On 06-19-2025 13:59:00 CDT by Mike Lau us Mickie Blackman MD CARDIAC SERVICES [facility] Final Result INTERFACE SYSTEM Refer to clinic/hospital department * US OB LIMITED + NST (06/15/2025 10:00 AM CDT) Only the most recent of4 resultswithin the time period is included. Anatomical Region Laterality Modality Pelvis Ultrasound 06/15/2025 9:16 AM CDT Narrative 06/15/2025 9:33 AM CDT MODIFIED [facility] STUDY ----- Pat. Name: SHEILA WINKLER Study Date: 06/15/2025 9:16am Pat. 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 Para 0 MATERNAL ASSESSMENT ----- Physical Exam Initial weight 61 kg, 135 lb. Initial BMI 25.51 kg/m . Blood pressure 127/70 mmHg. Heart rate 102 bpm METHOD ----- EFM, Transabdominal ultrasound examination. View: Good view ----- Cole . Number of fetuses: 1 DATING ----- GA by prior assessment 36 w + 0 d ALEJANDRINA by prior assessment: 07/13/2025 Method of dating: Restore dating from previous exam Assigned: based on stated ALEJANDRINA, selected on 02/27/2025 Assigned GA 36 w + 0 d Assigned ALEJANDRINA: 07/13/2025 GENERAL EVALUATION ----- Cardiac activity present. Presentation: cephalic NON STRESS TEST ----- NST interpretation: reactive. Test duration 29 min. Baseline FHR 135 bpm. Baseline variability: moderate. Accelerations: Present. Decelerations: Variable. Uterine activity: absent AMNIOTIC FLUID ASSESSMENT ----- Amount of AF: normal amount MVP 3.0 cm. TREVOR 8.8 cm. Q1 3.0 cm, Q2 1.1 cm, Q3 2.7 cm, Q4 2.0 cm COMMENT ----- Nurses Notes: Patient reports positive movement and no bleeding, leaking of fluid or tremayne. FBS- 126. IMPRESSION ----- Impression 1. Live IUP at 36w 0d. 2. Normal amniotic fluid (DVP 3 cm, TREVOR. 8.8 cm). 3. Reactive NST/Reassuring testing. Recommendation -Continue testing as scheduled. Thank you for inviting us to participate in your patient's care. Procedure Note Latonia Collins MD - 06/15/2025 MODIFIED BPP STUDY ----- Pat. Name:Chiki WINKLER Date:06/15/2025 9:16am Pat. NO: [id number] MD:DONALD YOON MD [facility]2000Age:24 ----- INDICATION ----- Diabetes type I Asthma Complicating Absent Ductus Venosus CODING ----- Diagnoses Z3A.36: Weeks of gestation O99.513: Diseases of the respiratory systemcomplicating O24.013: Pre-existing type 1 diabetes mellitus, inpregnancy O35.8XX0: Maternal care for other (suspected) abnormality and damage, not applicable or unspecified Procedures 64994: NST/ monitoring 43721: Limited 1 or more - TREVOR, FHR, position(modifier 59 for MBPP) HISTORY ----- OB History 1. Para 0 MATERNAL ASSESSMENT ----- Physical Exam Initial weight 61 kg, 135 lb. Initial BMI 25.51kg/m . Blood pressure 127/70 mmHg. Heart rate 102 bpm METHOD ----- EFM, Transabdominal ultrasound examination. View: Good view ----- Cole . Number of fetuses: 1 DATING ----- GA by prior [id number] w + 0 d ALEJANDRINA by prior assessment:07/13/2025 Method of dating:Restore dating from previous exam Assigned:based on stated ALEJANDRINA, selected on 02/27/2025 Assigned GA36 w + 0 d Assigned ALEJANDRINA:07/13/2025 GENERAL EVALUATION ----- Cardiac activity present. Presentation: cephalic NON STRESS TEST ----- NST interpretation: reactive. Test duration 29 min. Baseline FHR 135 bpm.Baseline variability: moderate. Accelerations: Present. Decelerations: Variable. Uterine activity: absent AMNIOTIC FLUID ASSESSMENT ----- Amount of AF: normal amount MVP 3.0 cm. TREVOR 8.8 cm. Q1 3.0 cm, Q2 1.1 cm, Q3 2.7 cm, Q4 2.0 cm COMMENT ----- Nurses Notes: Patient reports positive movement and no bleeding,leaking of fluid or tremayne. FBS- 126. IMPRESSION ----- Impression 1. Live IUP at 36w 0d. 2. Normal amniotic fluid (DVP 3 cm, TREVOR. 8.8 cm). 3. Reactive NST/Reassuring testing. Recommendation -Continue testing as scheduled. Thank you for inviting us to participate in your patient's care. us Marlee Clemens MD ORDERABLES Final Result * BILE ACIDS FRACTIONATED AND TOTAL (06/08/2025 11:52 AM CDT) Only the most recent of2 resultswithin the time period is included. CHOLIC ACID 0.9 < OR = 1.8 umol/L [facility] [employer] [facility], DEOXYCHOLIC ACID 1.1 < OR = 2.4 umol/L [facility] [employer] [facility], CHENODEOXYCHOLIC ACID 1.3 < OR = 3.1 umol/L [facility], BILE ACIDS, TOTAL 3.2 < OR = 6.8 umol/L [facility], Comment: This test was developed and its analytical performance characteristics have been determined by [employer]. It has not been cleared or approved by the FDA. This assay has been validated pursuant to the CLIA regulations and is used for clinical purposes. Test Performed at: [facility], [address] [place] [address] Antonina Mcqueen MD,PhD,KRISSY Blood 06/08/2025 11:5 2 AM CDT 06/08/2025 11:53 AM CDT us Mickie Blackman MD CHEMISTRY ORDERABLES Final Result Performing Organization Address City/State/[facility] Co de Phone Number [facility] [phone] [facility], [address] [place] [address] * ECHOCARDIOGRAM 2D FU W DOPPLER (06/05/2025 9:09 AM CDT) 06/05/2025 7:55 AM CDT Narrative INTERFACE SYSTEM - 06/07/2025 5:40 PM CDT *[facility], [facility]* Echocardiogram Report 2D, spectral Doppler, and color Doppler PATIENT: Sheila Winkler *STUDY DATE/TIME:* Jun 05 2025 7:55AM *HEIGHT:* 154.9cm / (61in) /AGE: 01 2000 / 24year(s) *WEIGHT:* 73kg / (161lb) GENDER: F *BSA/BMI:* 1.72m^2 / 30.4kg/m^2 *BP:* 125 / 79 *IMAGING FACILITY:[facility] *REFERRING PHYSICIAN:Brie Hussein M.D. *ORDERING PROVIDER:Ashley Hartman M.D. *READING PHYSICIAN:Ashley Hartman M.D. REASON FOR EXAM: Abnormal ultrasound. STUDY AND PROCEDURE DATA: echocardiography, follow-up or limited study. Institution: [facility]. Procedure: Transabdominal echocardiogram was performed for congenital heart disease evaluation. Views were limited by position. Expected delivery date: Estimated delivery date: 07/13/2025. Gestational age: 34wk. CONCLUSIONS: 2-DIMENSIONAL STUDY. Single gestation with lie [...] No arrhythmia seen. The heart rate was 142 /min with 1:1 conduction. IMPRESSION: No ductus venosus was visualized. Dilated/ectasia of umbilical vein ending in portal sinus. The vein appeared to be somewhat right-sided No clear cut structural or functional cardiac [...] and electronically signed by Michael Hartman M.D. 06/07/2025 17:40 Procedure Note Michael Hartman MD - 06/07/2025 *[facility], [facility]* Echocardiogram Report 2D, spectral Doppler, and color Doppler PATIENT: Sheila Winkler *STUDY DATE/TIME:* Jun 0591874:55AM *HEIGHT:* 154.9cm / (61in) /AGE: 01 2000 / 24year(s) *WEIGHT:* 73kg / (161lb) GENDER: F *BSA/BMI:* 1.72m^2 / 30.4kg/m^2 *BP:* 125 / 79 *IMAGING FACILITY:* [facility] *REFERRING PHYSICIAN:* Brie Major M.D. *ORDERING PROVIDER:* Michael Hartman M.D. *READING PHYSICIAN:Ashley Hartman M.D. REASON FOR EXAM: Abnormal ultrasound. STUDY AND PROCEDURE DATA: echocardiography, follow-up or limitedstudy. Institution: [facility]. Procedure: Transabdominal fetalechocardiogram was performed for congenital heart disease evaluation. Views were limitedby position. Expected delivery date: Estimated delivery date: 07/13/2025. Gestational age: 34wk. CONCLUSIONS: 2-DIMENSIONAL STUDY. Single gestation with lie [...] No arrhythmia seen. The heart rate was 142 /min with 1:1conduction. IMPRESSION: No ductus venosus was visualized. Dilated/ectasia of umbilical vein endingin portal sinus. The vein appeared to be somewhat right-sided No clear cut structural or functional cardiac [...] and electronically signed by Michael Hartman M.D. 06/07/2025 17:40 us Michael Hartman MD US ORDERABLES Final Result Performing Organization Address [facility] de Phone Number INTERFACE SYSTEM Refer to clinic/hospital department * NONSTRESS TEST (05/04/2025 4:08 PM CDT) [...] OB GYNE ORDERABLES Final Resu lt * LIPASE (05/04/2025 3:36 PM CDT) LIPASE 41 13 - 60 U/L 05/04/2025 4:20 PM CDT [place] [employer] [facility] Blood Venipuncture / Unknown 05/04/2025 3:36 PM CDT 05/04/2025 3:42 PM CDT Kash Draper MD CHEMISTRY ORDERABLES Final Re sult Performing Organization Address [facility] Co de Phone Number [place] [employer] [facility] LORIE# [phone] [address] [place] [address] * AMYLASE (05/04/2025 3:36 PM CDT) AMYLASE 54 28 - 100 U/L 05/04/2025 4:20 PM CDT [place] [facility] Blood Venipuncture / Unknown 05/04/2025 3:36 PM CDT 05/04/2025 3:42 PM CDT us Kash Draper MD CHEMISTRY ORDERABLES Final Re sult Performing Organization Address City/State/[facility] Co de Phone Number [place] [employer] [facility] LORIE# [phone] [address] [place] [address] * ECHOCARDIOGRAM 2D W DOPPLER (04/17/2025 8:55 AM CDT) 04/17/2025 7:58 AM CDT Narrative INTERFACE SYSTEM - 04/19/2025 10:02 AM CDT *[facility], [facility]* Echocardiogram Report Complete 2D, complete spectral Doppler, and color Doppler PATIENT: Sheila Winkler *STUDY DATE/TIME:* Apr 17 2025 7:58AM *HEIGHT:* 154.9cm / (61in) /AGE: 01 2000 / 24year(s) *WEIGHT:* 68.9kg / (152lb) GENDER: F *BSA/BMI:* 1.68m^2 / 28.7kg/m^2 *BP:* 124 / 79 *IMAGING FACILITY:* [facility] *REFERRING PHYSICIAN:Brie Hussein M.D. *ORDERING PROVIDER:Ashley Hartman M.D. *READING PHYSICIAN:Ashley Hartman M.D. *TIMBER FRAMER HELPER:* Makeda Smith REASON FOR EXAM: Abnormal ultrasound. STUDY AND PROCEDURE DATA: echocardiography, initial or complete study. Institution: [facility]. Procedure: Transabdominal echocardiogram was performed for congenital [...] Procedure Note Michael Hartman MD - 04/19/2025 *[facility], [facility]* Echocardiogram Report Complete 2D, complete spectral Doppler, and color Doppler PATIENT: Sheila Winkler *STUDY DATE/TIME:* Apr 17 2025 7:58AM *HEIGHT:* 154.9cm / (61in) /AGE: 01 2000 / 24year(s) *WEIGHT:* 68.9kg / (152lb) GENDER: F *BSA/BMI:* 1.68m^2 / 28.7kg/m^2 *BP:* 124 / 79 *IMAGING FACILITY:[facility] *REFERRING PHYSICIAN:Brie Hussein M.D. *ORDERING PROVIDER:* Michael Hartman M.D. *READING PHYSICIAN:* Michael Hartman M.D. *TIMBER FRAMER HELPER:* Makeda Smith REASON FOR EXAM: Abnormal ultrasound. STUDY AND PROCEDURE DATA: echocardiography, initial or completestudy. Institution: [facility]. Procedure: Transabdominal fetalechocardiogram was performed for congenital [...] signed by Michael Hartman M.D. 04/19/2025 10:02 Michael Hartman MD US ORDERABLES Final Result INTERFACE SYSTEM Refer to clinic/hospital department * HEMOGLOBIN A1C (04/13/2025 9:39 AM CDT) HEMOGLOBIN A1C 5.1 <5.7 % of total Hgb [facility] Comment: For the purpose of screening for the presence of diabetes: <5.7% Consistent with the absence of diabetes 5.7-6.4% Consistent with increased risk for diabetes (prediabetes) > or =6.5% Consistent with diabetes This assay result is consistent with a decreased risk of diabetes. Currently, no consensus exists regarding use of hemoglobin A1c for diagnosis of diabetes in children. According to [place] [employer] Diabetes Association (ADA) guidelines, hemoglobin A1c <7.0% represents optimal control in non- diabetic patients. Different metrics may apply to specific patient populations. Standards of Medical Care in Diabetes(ADA). ESTIMATED AVERAGE GLUCOSE (MG/DL) 100 mg/dL [facility] meredith Marte ESTIMATED AVERAGE GLUCOSE (MMOL/L) 5.5 mmol/L [facility] harper Estuardo Comment: Test Performed at: [facility] [address] [place] [address] [facility] Blood 04/13/2025 9:39 AM CDT 04/13/2025 9:40 AM CDT Tess Vazquez MD CHEMISTRY ORDERABLES Final Resul t [facility] [phone] [facility] [address] [place] [address] * ECHO 2D + COLOR FLOW VELOCITY (04/12/2025 1:41 PM CDT) Narrative 04/12/2025 1:41 PM CDT Order information only. Exam was auto-finalized. us Patria Boyle MD ORDERABLES Final Result from Last 3 Months Insurance BCBS OUT OF STATE [employer] [facility] [id number]
--- OUTSIDE RECORDS SUMMARY | 2025-06-26 15:45 | XMS_ITS | Clinical Summary ---
Author Organization [facility] [address] [place] [address] Care Team Providers Care Base Ply Hand Name Role Phone Shila Patel NP Primary Care Provider [phone] Allergies No known active allergies Medications Dexcom [...] mg total) by mouth daily Active vit [id number]-dh a 27mg iron- 800 mcg-250 mg capsule [...] Description 03/29/2025 4:00 PM CDT Office Visit [facility] Primary Care at [address] [address] Shila Patel NP Encounter to [...] Maternal Grandfather Bepa Allergy (severe) Maternal Grandmother Centre Arthritis Maternal Grandmother Centre Cancer Maternal Grandmother Centre Hypertension Maternal Grandmother Ruthy Arthritis Mother Saundi Clotting disorder Mother Saundi Arthritis Paternal Grandfather Pops Diabetes Paternal Grandfather Pops Hearing loss Paternal Grandfather Pops Allergy (severe) Paternal Grandmother Felisha Clotting disorder Paternal Grandmother Felisha Diabetes Paternal Grandmother Felisha Hypertension Paternal Grandmother Felisha Relation Name Status Comments Father Von Alive Maternal Grandfather Bepa Alive Maternal Grandmother Centre Alive Mother Saundi Alive Paternal Grandfather Pops [...] on file 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
[2025-06-26 17:13] LABS: Hematocrit 37.6 % (37.0-47.0); Hemoglobin 12.2 g/dL (12.0-15.0); Immature Granulocyte Percent A 1.5 % (0-0.5); Lymphocytes Absolute Auto 1.61 K/mm3 (0.9-3.2); Mean Corpuscular HGB Conc 32.4 g/dl (32-36); Mean Corpuscular Hemoglobin 29.8 pg (26-34); Mean Corpuscular Volume 91.9 fl (80-100); Nucleated Red Blood Cells Absolute Auto 0.000 K/mm3 (0.0-0.012); Nucleated Red Blood Cells Perc 0.0 % (0.0-0.2); Platelet Count Result 152 k/mm3 (150-375); Red Blood Count 4.09 M/mm3 (4.2-5.4); White Blood Count 11.2 K/mm3 (4.5-10.0)
[2025-06-26 18:02] LABS: Syphilis IgG/IgM Antibody Non-Reactive (Nonreactive)
--- NOTE | 2025-06-26 18:56 | LDADM ---
This patient, Kera Carreon, was admitted to Labor/Delivery/Recovery 108 on 06/26/25 at 15:38. Plans for labor, pain management and were discussed with patient. Patient/family oriented to hospital policies and general routines including ID bracelet, bed and alarms, visiting hours, pain management, procedures, bathroom and other care routines, personal items, smoking policy, room service/diet and guest tray routines, security routines, and visiting hours. Patient/Family are encouraged to report perceived risks to care and to ask questions if they do not understand what they are told or what they should do. See OBIX for further documentation.
[2025-06-27] VITALS (155 sets, daily range): BP systolic 105–153; BP diastolic 46–93; PULSE 59–123; RESP 14–16; TEMP 36.5–36.6; O2SAT 95–100
[2025-06-27] MEDS: LACTATED RINGERS 1,000 ML 125 ML IV CONT ×2 (05:38→13:11)
[2025-06-27] MEDS: OXYTOCIN 30 UNITS/NS 500 ML 30 UNITS/500 ML BAG IV CONT (05:38)
[2025-06-27] MEDS: ONDANSETRON INJ 4 MG/2 ML VIAL IV PUSH (09:40)
[2025-06-27] MEDS: fentaNYL CITRATE INJ (*CRX) 100 MCG/2 ML VIAL 50 MCG IV PUSH (12:09)
--- NOTE | 2025-06-27 13:11 | P.HP_ITS ---
H&P: HPI History of Present Illness Date/Time: 06/27/25 08:30 Chief Complaint: type 1 diabetes mellitus Narrative: Patient is a 24 year old who presents for medical induction of labor indicated for type 1 diabetes mellitus. She has been somewhat well controlled throughout however has had increasing insulin requirements over the past few weeks. growth has been normal. testing has been reassuring. Her is otherwise complicated by a hx of coccyx fracture. Denies strong contractions, leakage of fluid or vaginal bleeding. Good movement. Review of Systems Review of Systems: All systems reviewed & are unremarkable except as noted in HPI and below PMFSH Family History Family History Mother HELLP syndrome Hypertension Father Hypertension Diabetes mellitus Grandparent Diabetes mellitus Grandparent Diabetes mellitus Other Skin cancer Social History Social History Smoking status: Never smoker Substance use: never Do You Feel Safe in your Home?: Yes Lack of Transportation: No Lack of Food: Never True Current Housing: I Have Housing Concerned About Future Housing: No Difficulty Paying Gas/Electric Bills: No Difficulty Paying for Meds: No Currently Unemployed: No Education: Bachelor's Degree Difficulty w/ Childcare or Family Care: No Spiritual care concerns: No Meds Home Medications and Allergies Home Medications ?Medication ?Instructions ?Recorded ?Confirmed ?Type albuterol sulfate 90 mcg/actuation 2 puff inhalation Q6H PRN SOB 05/15/25 06/13/25 History aerosol inhaler aspirin 81 mg capsule 81 mg PO DAILY 05/15/25 06/13/25 History cetirizine 10 mg tablet (24Hour 10 mg PO DAILY 05/15/25 06/13/25 History Allergy) famotidine 20 mg tablet (Acid 20 mg PO BID 05/15/25 06/13/25 History Controller) ferrous sulfate 325 mg (65 mg 325 mg PO DAILY 05/15/25 06/13/25 History iron) tablet (Feosol) fluticasone furoate 50 See Rx Instructions inhalation 05/15/25 06/13/25 History mcg-vilanterol 25 mcg/dose .COMPLEX inhalation powder (Breo Ellipta) fluticasone propionate 50 2 spray intranasal DAILY 05/15/25 06/13/25 History mcg/actuation nasal spray,suspension (24 Hour Allergy Relief) insulin aspart U-100 100 unit/mL 1 sliding scale dose subcut 05/15/25 06/13/25 History subcutaneous cartridge USEASDIRECTD ipratropium 20 mcg-albuterol 100 1 puff inhalation Q4H 05/15/25 06/13/25 History mcg/actuation mist for inhalation (Combivent Respimat) magnesium 250 mg tablet 250 mg PO HS 05/15/25 06/13/25 History magnesium glycinate 100 mg (as 100 mg PO HS 05/15/25 06/13/25 History glycinate) tablet (Mag Glycinate) vit no.95-ferrous 1 tablet PO DAILY 05/15/25 06/13/25 History fumarate 28 mg-folic acid 800 mcg tablet () fluticasone furoate 50 inhalation 06/13/25 History mcg-vilanterol 25 mcg/dose inhalation powder (Breo Ellipta) Allergies Allergy/AdvReac Type Severity Reaction Status Date / Time No Known Allergies Allergy Verified 06/26/25 17:22 Vital Signs Vital Signs - 24 hr 06/26/25 16:48 06/26/25 17:01 06/26/25 17:16 Temperature Pulse Rate 80 77 81 Blood Pressure 134/71 126/70 115/66 Pulse Oximetry Oxygen Delivery 06/26/25 17:31 06/26/25 17:46 06/26/25 17:56 Temperature Pulse Rate 75 80 65 Blood Pressure 126/69 83/54 L 113/73 Pulse Oximetry Oxygen Delivery 06/26/25 18:30 06/26/25 20:23 06/26/25 20:30 Temperature 97.6 F 97.6 F Pulse Rate 82 Blood Pressure 122/67 Pulse Oximetry Oxygen Delivery 06/26/25 21:01 06/26/25 22:09 06/26/25 22:30 Temperature 97.8 F Pulse Rate 77 63 Blood Pressure 128/65 116/60 Pulse Oximetry Oxygen Delivery 06/26/25 23:15 06/26/25 23:20 06/26/25 23:27 Temperature Pulse Rate Blood Pressure Pulse Oximetry 99 99 97 Oxygen Delivery 06/26/25 23:27 06/26/25 23:32 06/26/25 23:37 Temperature Pulse Rate Blood Pressure Pulse Oximetry 97 100 100 Oxygen Delivery 06/26/25 23:42 06/26/25 23:47 06/26/25 23:52 Temperature Pulse Rate Blood Pressure Pulse Oximetry 100 100 100 Oxygen Delivery 06/26/25 23:57 06/27/25 00:00 06/27/25 00:02 Temperature 97.9 F Pulse Rate Blood Pressure Pulse Oximetry 100 100 Oxygen Delivery 06/27/25 00:07 06/27/25 00:12 06/27/25 00:17 Temperature Pulse Rate Blood Pressure Pulse Oximetry 100 99 99 Oxygen Delivery 06/27/25 00:22 06/27/25 00:27 06/27/25 00:32 Temperature Pulse Rate Blood Pressure Pulse Oximetry 100 99 100 Oxygen Delivery 06/27/25 00:37 06/27/25 00:42 06/27/25 00:47 Temperature Pulse Rate Blood Pressure Pulse Oximetry 100 100 100 Oxygen Delivery 06/27/25 00:52 06/27/25 01:00 06/27/25 01:05 Temperature Pulse Rate Blood Pressure Pulse Oximetry 100 100 100 Oxygen Delivery 06/27/25 01:10 06/27/25 01:15 06/27/25 01:20 Temperature Pulse Rate Blood Pressure Pulse Oximetry 100 100 100 Oxygen Delivery 06/27/25 01:25 06/27/25 01:30 06/27/25 01:34 Temperature Pulse Rate 64 Blood Pressure 122/63 Pulse Oximetry 100 100 Oxygen Delivery 06/27/25 01:35 06/27/25 02:00 06/27/25 03:04 Temperature 97.8 F Pulse Rate 73 Blood Pressure 120/57 L Pulse Oximetry 100 Oxygen Delivery 06/27/25 04:00 06/27/25 05:00 06/27/25 06:29 Temperature 97.9 F Pulse Rate 66 Blood Pressure 114/59 L Pulse Oximetry 96 Oxygen Delivery 06/27/25 06:31 06/27/25 06:32 06/27/25 06:34 Temperature Pulse Rate 88 72 Blood Pressure 105/70 112/65 Pulse Oximetry 98 Oxygen Delivery 06/27/25 06:39 06/27/25 06:44 06/27/25 06:49 Temperature Pulse Rate Blood Pressure Pulse Oximetry 99 98 98 Oxygen Delivery 06/27/25 06:54 06/27/25 06:59 06/27/25 07:07 Temperature Pulse Rate Blood Pressure Pulse Oximetry 100 98 99 Oxygen Delivery 06/27/25 07:12 06/27/25 07:17 06/27/25 07:22 Temperature Pulse Rate Blood Pressure Pulse Oximetry 100 100 99 Oxygen Delivery 06/27/25 07:27 06/27/25 07:32 06/27/25 07:34 Temperature Pulse Rate 89 Blood Pressure 109/67 Pulse Oximetry 100 100 Oxygen Delivery Room Air 06/27/25 07:37 06/27/25 07:42 06/27/25 07:47 Temperature Pulse Rate Blood Pressure Pulse Oximetry 100 96 100 Oxygen Delivery 06/27/25 07:52 06/27/25 07:57 06/27/25 08:01 Temperature Pulse Rate 72 Blood Pressure 111/56 L Pulse Oximetry 100 100 Oxygen Delivery 06/27/25 08:02 06/27/25 08:25 06/27/25 08:30 Temperature 97.7 F Pulse Rate Blood Pressure Pulse Oximetry 100 99 100 Oxygen Delivery 06/27/25 08:31 06/27/25 08:35 06/27/25 08:40 Temperature Pulse Rate 62 Blood Pressure 119/72 Pulse Oximetry 100 100 Oxygen Delivery 06/27/25 08:45 06/27/25 08:50 06/27/25 08:55 Temperature Pulse Rate Blood Pressure Pulse Oximetry 100 100 100 Oxygen Delivery 06/27/25 09:00 06/27/25 09:01 06/27/25 09:11 Temperature Pulse Rate 59 L Blood Pressure 119/89 Pulse Oximetry 100 100 Oxygen Delivery 06/27/25 09:16 06/27/25 09:21 06/27/25 09:26 Temperature Pulse Rate Blood Pressure Pulse Oximetry 100 100 100 Oxygen Delivery 06/27/25 09:31 06/27/25 09:33 06/27/25 09:38 Temperature Pulse Rate 81 Blood Pressure 127/77 Pulse Oximetry 100 100 Oxygen Delivery 06/27/25 09:43 06/27/25 09:48 06/27/25 09:53 Temperature Pulse Rate Blood Pressure Pulse Oximetry 100 99 99 Oxygen Delivery 06/27/25 09:58 06/27/25 10:01 06/27/25 10:03 Temperature Pulse Rate 88 Blood Pressure 122/64 Pulse Oximetry 98 100 Oxygen Delivery 06/27/25 10:08 06/27/25 10:13 06/27/25 10:18 Temperature Pulse Rate Blood Pressure Pulse Oximetry 100 99 97 Oxygen Delivery 06/27/25 10:23 06/27/25 10:28 06/27/25 10:30 Temperature 97.7 F Pulse Rate Blood Pressure Pulse Oximetry 99 100 Oxygen Delivery 06/27/25 10:31 06/27/25 10:33 06/27/25 10:38 Temperature Pulse Rate 71 Blood Pressure 138/93 H Pulse Oximetry 100 100 Oxygen Delivery 06/27/25 10:43 06/27/25 10:48 06/27/25 10:53 Temperature Pulse Rate Blood Pressure Pulse Oximetry 100 100 96 Oxygen Delivery 06/27/25 10:58 06/27/25 11:01 06/27/25 11:03 Temperature Pulse Rate 69 Blood Pressure 133/82 Pulse Oximetry 98 100 Oxygen Delivery 06/27/25 11:08 06/27/25 11:22 06/27/25 11:25 Temperature Pulse Rate Blood Pressure Pulse Oximetry 100 100 95 Oxygen Delivery 06/27/25 11:29 06/27/25 11:30 06/27/25 11:31 Temperature 97.8 F Pulse Rate 72 Blood Pressure 115/46 L Pulse Oximetry 100 Oxygen Delivery 06/27/25 11:34 06/27/25 11:39 06/27/25 11:44 Temperature Pulse Rate Blood Pressure Pulse Oximetry 98 100 100 Oxygen Delivery 06/27/25 11:49 06/27/25 11:54 06/27/25 11:57 Temperature Pulse Rate Blood Pressure Pulse Oximetry 100 100 100 Oxygen Delivery 06/27/25 12:02 06/27/25 12:07 06/27/25 12:12 Temperature Pulse Rate Blood Pressure Pulse Oximetry 100 97 95 Oxygen Delivery 06/27/25 12:17 06/27/25 12:22 06/27/25 12:27 Temperature Pulse Rate Blood Pressure Pulse Oximetry 96 98 98 Oxygen Delivery 06/27/25 12:31 06/27/25 12:32 06/27/25 12:37 Temperature Pulse Rate 70 Blood Pressure 153/81 H Pulse Oximetry 97 99 Oxygen Delivery 06/27/25 12:40 06/27/25 12:42 06/27/25 12:45 Temperature 98 F Pulse Rate Blood Pressure Pulse Oximetry 98 99 Oxygen Delivery 06/27/25 12:50 06/27/25 12:55 06/27/25 13:00 Temperature Pulse Rate Blood Pressure Pulse Oximetry 97 97 99 Oxygen Delivery 06/27/25 13:01 06/27/25 13:05 06/27/25 13:10 Temperature Pulse Rate 86 Blood Pressure 148/76 H Pulse Oximetry 99 99 Oxygen Delivery Exam Const: General: comfortable and no acute distress Resp: Effort & Inspection: normal respiratory effort : Other: 3.5/80/-2, AROM performed with clear fluid Extrem: General: normal to inspection Psych: Mental Status: mental status grossly normal H&P: Results Labs Labs: Short CBC 06/26/25 Range/Units 17:00 WBC 11.2 H (4.5-10.0) K/mm3 Hgb 12.2 (12.0-15.0) g/dL Hct 37.6 (37.0-47.0) % Plt Count 152 (150-375) k/mm3 Assessment and Plan Assessment and plan (1) Type 1 diabetes mellitus affecting in third trimester, antepartum: Code(s): O24.013 - Pre-existing type 1 diabetes mellitus, in , third trimester Status: Acute Assessment and Plan: - [facility] recommended 37 week induction due to worsening glucose control - continue to monitor glucose closely in labor, goal 70-110 close to delivery (2) Encounter for induction of labor: Code(s): Z34.90 - Encounter for supervision of normal , unspecified, unspecified trimester Status: Acute Assessment and Plan: - s/p cytotec per protocol - pitocin per protocol - SVE 3.5/80/-2, AROM clear fluid - continue induction
[2025-06-27] MEDS: fentaNYL CITRATE INJ (*CRX) 100 MCG/2 ML VIAL IV PUSH (13:13)
--- NOTE | 2025-06-27 15:08 | PM.OBPRVD ---
OB - Vaginal Delivery Note Procedure Delivery date: 06/27/25 Events: Diabetes Mellitus (type 1) Induction method: Per Misoprostol Protocol Delivery augmentation: Rupture of Membranes and Pitocin Delivery monitor: External FHT and External Uterine Route of delivery: Episiotomy description: None Laceration Description: Perineal - 1st Degree Delivery repair: vicryl Specimen: No Quantitative Blood Loss (ml): 100 Disposition: Floor Complications: No immediate complications Narrative: See H&P and notes for details on patient's admission and labor. She progressed to complete cervical dilation and at the appropriate time began pushing. With adequate expulsive efforts by the mother, the baby's head was delivered without difficulty. Nuchal cord was not present. The baby's right shoulder was anterior and delivered under the pubic symphysis without difficulty. The posterior shoulder and the rest of the baby delivered without difficulty. The umbilical cord was doubly clamped and cut after 60 seconds of delayed cord clamping. Care of the infant was then assumed by the nursing staff. Baby Date of : 06/27/25 Gestational Age by Date: 37 gender: Female presentation: vertex position: Left Occiput Anterior Placenta delivery description: Spontaneous Cord Vessel Description: 3 Vessels and Delayed Cord Clamping
--- NOTE | 2025-06-27 16:36 | OBPPTRN ---
Patient transferred to post room #290 via wheelchair. Support person present. Oriented to unit, room, information board, rooming in, admission packet and security measures. Patient verbalizes understanding.
--- NOTE | 2025-06-27 16:36 | PC.NURSE ---
1440. Observed and assisted mother latching infant to the [left] breast in [cross cradle] position. Infant [was] able to maintain an appropriate latch. Mother [declines] nipple pain/discomfort [throughout feeding]. Encouraged mother to keep awake and nursing at the breast for as long as baby desires. Mother taught to listen for swallowing during feedings. was able to feed at the breast for 30 minutes. Reviewed using the blue feeding sheet to record time and duration of feeding. Mother voiced understanding of the education shared, to call for assistance if the infant does not latch or if there is discomfort with . name/number on communication board. Reported to the Primary RN.?
--- NOTE | 2025-06-27 17:42 | PC.NURSE ---
1700. Introductions were made, then consulted with patient to assess needs related to . Discussed with mother her plans to feed her and the experience so far. Encouraged mother to express any questions or concerns she has regarding feedings. Advised her to call out for a latch check or if she needs assistance waking or positioning baby. Reviewed the blue feeding worksheet for required output and feeding at least 8-12 times every 24 hours. Resources provided for inpatient and outpatient services with the feeding sheet, mom/baby guide, and name/number written on the communication board. Mother voiced understanding of information and will call if there is a request for assistance. Reported to the Primary RN?
[2025-06-28 04:52] LABS: Hematocrit 35.1 % (37.0-47.0); Hemoglobin 11.3 g/dL (12.0-15.0)
[2025-06-28] MEDS: DOCUSATE SODIUM 100 MG CAPSULE PO (07:10)
[2025-06-28] MEDS: MULTIVIT/MIN/PREN/FOL AC/IRON TABLET 1 TAB PO (07:10)
[2025-06-28 07:50] VITALS: BP 126/69; PULSE 92; RESP 16; TEMP 36.6; O2SAT 99
--- NOTE | 2025-06-28 08:15 | PC.NURSE ---
Mother verbalizes she is able to independently latch with appropriate positioning and alignment. She denies any nipple discomfort and is responsively . Infant is currently meeting outcomes for weight, output, jaundice, blood sugar and feeding frequencies of 8-12 times in 24 hours. Mother declines any additional assistance or education at this time. Mother is encouraged to call for assistance if her infant doesn?t latch, pain with latching, questions or concerns. Mother voiced understanding of information shared along with the mom/baby guide for an additional resource. Reported to the Primary RN.
--- NOTE | 2025-06-28 10:25 | PC.NURSE ---
Initiated breast pumping due to [gestational age and low glucose]. Patient has her own Spectra pump. Instructions given on cleaning, care, usage, that there should be no pain, pumping schedule for milk production, collection, and storage of human milk. Patient was assessed for correct placement, flange size (measured at 15mm, using 17mm insert), to pump for adequate milk production every 3 hours (8 times in 24 hours). Mother voiced understanding of the education shared along with mom/baby guide and her user manual for additional resource information. Reported to the Primary RN.
--- NOTE | 2025-06-28 11:20 | PC.NURSE ---
Pt to 1st floor nursery via wheelchair with fob at chair-side to visit infant requiring level 2 care Nursery ext. provided and written on whiteboard
[2025-06-28 12:21] VITALS: BP 145/78; PULSE 100; RESP 16; TEMP 36.7; O2SAT 100
--- NOTE | 2025-06-28 13:05 | PC.NURSE ---
Pt returned to room via wheelchair with spouse at chair-side. Pt verbalized plans to pump and then try to rest. Encouraged pt to call out with any questions/concerns/ wants/ needs and pt verbalized understanding.
--- NOTE | 2025-06-28 13:31 | PC.NURSE ---
0700- upon entering room and making introductions- it was noticed that pt had not filled out insulin pump worksheet through the night or since 1500 on 06/28. Encouraged pt to document on sheet moring/ before feeds/ after feeds/ insulin admin/ and before bed. Pt verbalized understanding
[2025-06-28 18:46] VITALS: BP 134/71; PULSE 84; RESP 16; TEMP 36.8; O2SAT 100
[2025-06-29 08:15] VITALS: BP 125/78; PULSE 89; RESP 18; TEMP 36.7; O2SAT 98
--- NOTE | 2025-06-29 09:00 | PC.NURSE ---
Infant is [high risk for ineffective ] due to gestational age of 37 weeks. Parents took initiative yesterday and began pumping and supplementing with expressed breast milk and/or formula. Today, infant was started on phototherapy. Mother is instructed to pump (with her Spectra pump from home) after every or attempt. Mother should only attempt for 10-15 minutes at breast before moving on to supplementation. Support person can feed baby 15ml of pumped milk or formula while mother is pumping. Instructed parents on keeping breast milk at the bedside until the next feeding or for up to 4 hours. Breast pump instructions given on cleaning, care, usage, that there should be no pain, pumping schedule for milk production, collection, and storage of human milk. Patient was assessed for correct placement, flange size (measured 15mm, using 17mm insert), to pump for adequate milk production every 3 hours and 1-2 times at night (8 times in 24 hours). Reported to Primary RN.?
--- NOTE | 2025-06-29 10:25 | PC.NURSE ---
Met with patient regarding needs. She is continuing to breastfeed, pump, and supplement with expressed milk or formula. She feels that baby is doing a good job with and latching. We reviewed frequency of pumping throughout the day today. Mother is encouraged to pump after each , with the option to skip one or two sessions if it's feeling too overwhelming. Baby is rooming in under bili lights. Mother knows assistance is available to her today and she may call out and request assistance at any time. Primary RN updated.
--- NOTE | 2025-06-29 11:40 | PC.NURSE ---
Patient is currently in cross cradle hold on the left breast. Baby is nursing vigorously and suckling consistently. No audible swallows heard at this time. Mom states the latch is comfortable and baby appears to have an optimal asymmetrical latch. Mom is encouraged that she is doing a great job . The last of her frozen colostrum was taken to the room for supplementation after . Primary RN updated.
--- NOTE | 2025-06-29 13:11 | P.PNOB_ITS ---
OB - PN: Subj Subjective Date/time seen: 06/29/25 13:11 Patient comments: no complaints, pain well controlled and tolerating diet OB - PN: Obj Data Labs 06/28/25 04:06 OB - PN A/P Plan day: 2 Plan: routine care and discharge home Time Spent With Patient Time: Total time spent is greater than 50% in coordination of care (as documented) at patient's floor/unit and/or counseling patient: Exam 2 Const: General: comfortable and no acute distress Resp: Effort & Inspection: normal respiratory effort Auscultation: no rales, no rhonchi and no wheezes Cardio: Rate: regular rate Heart sounds: no click, no murmurs and no rubs GI: GI Palp: Yes Soft to palpation and No Tenderness to palpation present (GI) Auscultation: normal bowel sounds Extrem: General: normal to inspection, no pedal edema and no calf tenderness
--- NOTE | 2025-06-29 13:11 | PM.OBDSVD ---
DS: Admitting Diagnosis Discharge Date 06/29/2025 Admitting Diagnosis Term OB - DS: Summary OB Procedures : None OB Procedures Intrapartum: Spontaneous Vag Delivery OB Procedures: : None Peripartum Data Laceration Description: Perineal - 1st Degree Episiotomy description: None Time Spent with Patient Time attestation: Total time spent providing and/or coordinating discharge services: Discharge Plan Discharge Discharging Clinician: Diego Mclaughlin Patient Disposition: Home Activity: pelvic rest and no preference Diet: regular Patient Instructions: Antibiotic Form Patient Language: Kiswahili Stand Alone Forms: General Discharge Information Follow-up/Referrals: Diego Mclaughlin MD [Physician] - Discharge Medications: No Action Breo Ellipta 50-25 mcg/dose blister with device inhalation magnesium 250 mg tablet 250 mg PO HS Mag Glycinate 100 mg tablet 100 mg PO HS aspirin 81 mg capsule 81 mg PO DAILY PNV no.95-ferrous fumarate-FA [] 28 mg iron- 800 mcg tablet 1 tablet PO DAILY cetirizine [24Hour Allergy] 10 mg tablet 10 mg PO DAILY famotidine [Acid Controller] 20 mg tablet 20 mg PO BID ferrous sulfate [Feosol] 325 mg (65 mg iron) tablet 325 mg PO DAILY insulin aspart U-100 100 unit/mL cartridge 1 sliding scale dose subcut USEASDIRECTD albuterol sulfate 90 mcg/actuation HFA aerosol inhaler 2 puff INHALATION Q6H PRN (Reason: SOB) Breo Ellipta 50-25 mcg/dose blister with device See Rx Instructions inhalation .COMPLEX Rx Instructions: 2 puffs q a.m. inhaled; Combivent Respimat 20-100 mcg/actuation mist 1 puff inhalation Q4H fluticasone propionate [24 Hour Allergy Relief] 50 mcg/actuation spray,suspension 2 spray intranasal DAILY Rx Instructions: administer into each nostril Date of admission: 06/26/25 15:38 Primary Care Provider: AmandaShila Admitting Provider: Gustavo Jamison Attending physician on admission: Gustavo Jamison Condition: Stable
--- NOTE | 2025-06-29 16:35 | PC.NURSE ---
Mother is made aware that there is one more bag of pumped milk in the fridge. Pumping tips handout given. Baby is sleepy since starting phototherapy and mom worries that she is not wanting to wake to breastfeed. Reviewed normal jaundice progression and treatment including causing sleepiness in infants. Patient will call for assistance as needed. RN updated.
[2025-06-30 09:29] VITALS: BP 120/70; PULSE 88; RESP 18; TEMP 36.9; O2SAT 100
== END 2025-06-29 19:43 | disposition home or self-care (01) | DRG 807 ==
LOC: ANHLDR 15:44 → ANHOB2 06-29 13:13 → ANHLDR 06-30 08:31 → ANHOB2 06-30 08:31
PROVIDERS: Admitting Provider Obstetrics & Gynecology; PCP Nurse Practitioner Family; Visit Provider Obstetrics & Gynecology
DX: O24.02 Pre-existing type 1 diabetes mellitus, in childbirth (principal); Z37.0 Single live birth; Z79.4 Long term (current) use of insulin; Z3A.37 37 weeks gestation of pregnancy; O70.0 First degree perineal laceration during delivery
CPT/HCPCS: 36415; 82948; 85014; 85018; 85025; 86593; 86850; 86900; 86901; A9270; J2405; J2590; J3010; J7120